=== PATIENT | male | born 1950 | race Caucasian/White ===

== ENCOUNTER 2017-10-20 20:10 | Emergency (ER) | payer MEDICAID ==
[2017-10-20 21:05] VITALS: BP 124/76
--- NOTE | 2017-10-20 21:33 | EDM.PDOC ---
ED HPI GENERAL MEDICAL PROBLEM - General Chief Complaint: Genitourinary Problem Time Seen by Provider: 10/20/17 21:20 Source of Information: Reports: Patient, [facility] Records History Limitations: Reports: No Limitations - History of Present Illness INITIAL COMMENTS - FREE TEXT/NARRATIVE: ED for suprapubic catheter replacement. Catheter replaced earlier today fell out. - Related Data Allergies Allergy/AdvReac Type Severity Reaction Status Date / Time No Known Allergies Allergy Verified 04/15/16 08:22 Home Meds: Home Meds Furosemide 20 mg PO 0800 01/22/15 [History] Lisinop[place] 2[place] 7[address]01/22/15 [History] Oxybutynin [Oxybutynin ER] 10 mg PO 199901/22/15 [History] Pantoprazole [ProTONIX] 40 [place] 69901/22/15 [History] Simvastatin 40 mg PO 199901/22/15 [History] Terazosin HCl [Terazosin] 2 mg PO 199901/22/15 [History] Thioridazine HCl 10 mg PO 199901/22/15 [History] Warfarin Sodium [Jantoven] 2.5 mg PO .MO.WE..FR.SA.REDDING 01/22/15 [History] Acetaminophen [Tylenol] 650 mg PO Q4H PRN 01/24/15 [History] Albuterol Sulfate [Proair Hfa] 2 puff IH Q4HR PRN 01/24/15 [History] Iron,Carbonyl [Feosol] 45 mg PO 179901/24/15 [History] Liraglutide [Victoza] 1.8 mg SUBCUT 1700 01/24/15 [History] OLANZapine [ZyPREXA] 5 mg PO .08199901/24/15 [History] Pioglitazone HCl [Actos] 30 mg PO DAILY 01/24/15 [History] Sennosides [Senna] 1 tab PO 199901/24/15 [History] metFORMIN [Glucophage] 500 mg PO .0800 179901/24/15 [History] Allopurinol [Zyloprim] 100 mg PO 199903/28/16 [History] Darbepoetin [place]orge in Polysorbat [Aranesp] 60 mcg IJ ASDIRECTED 03/28/16 [History] Dextran 70/Hypromellose [Artificial Tears] 1 drop EYEBOTH QID 03/28/16 [History] Triamcinolone Acetonide [Triamcinolone Acetonide 0.1% Crm] 1 applic TOP BID PRN 03/28/16 [History] Levofloxacin 500 mg PO DAILY #10 tablet 04/01/16 [Rx] Nystatin [IJD: Nystatin Cream] 1 gm TOP BID #100 tube 04/01/16 [Rx] Nepafenac [Nevanac] 1 drop EYELF ASDIRECTED 04/15/16 [History] Ofloxacin [Floxin 0.3% Otic Soln] 1 drop EYELF ASDIRECTED 04/15/16 [History] prednisoLONE Acetate [Prednisolone Acetate] 1 drop EYELF ASDIRECTED 04/15/16 [ History] Past Medical History HEENT History: Reports: Cataract Other HEENT History: left eye Cardiovascular History: Reports: High Cholesterol, Hypertension Other Cardiovascular History: 1985 blood clot to leg Respiratory History: Reports: Asthma Other Respiratory History: 1985 clot in leg traveled to lung Gastrointestinal History: Reports: GERD Genitourinary History: Reports: Retention, Urinary, UTI, Recurrent Other Genitourinary History: suprapubic catheter Musculoskeletal History: Reports: None Psychiatric History: Reports: Aggressive/Hostile Behaviors, Depression, Psychosis Endocrine/Metabolic History: Reports: Diabetes, Type II Hematologic History: Reports: Anemia Oncologic (Cancer) History: Reports: None Dermatologic History: Reports: Other (See Below) Other Dermatologic History: excoriated area to abominal fold - Infectious Disease History Infectious Disease History: Reports: Chicken Pox, Measles, Mumps - Past Surgical History GI Surgical History: Reports: Cholecystectomy, Colonoscopy Male Surgical History: Reports: Suprapubic Catheter Placement Other Male Surgeries/Procedures: 2013 suprapubic cath placement Social & Family History - Tobacco Use Smoking Status *Q: Never Smoker Second Hand Smoke Exposure: No - Alcohol Use Days Per Week of Alcohol Use: 0 - Recreational Drug Use Recreational Drug Use: No - Living Situation & Occupation Living situation: Reports: Single, Assisted Living Occupation: Disabled ED ROS GENERAL - Review of Systems Review Of Systems: ROS reveals no pertinent complaints other than HPI. ED EXAM, RENAL/ - Physical Exam Exam: See Below Exam Limited By: No Limitations General Appearance: Alert, No Apparent Distress Eye Exam: Bilateral Eye: PERRL Ears: Normal External Exam Nose: Normal Inspection Throat/Mouth: Normal Inspection, Normal Voice Neck: Normal Inspection Respiratory/Chest: No Respiratory Distress Cardiovascular: Regular Rate, Rhythm GI/Abdominal: Soft, Non-Tender (Male) Exam: Other (Suprapubic os, stoma clean, small tag 9'0clock.) Extremities: Normal Inspection Neurological: Alert, Oriented Psychiatric: Normal Affect ED PROCEDURES - Suprapubic Catheter Insertion S/P Cath Indication: Repolacement Consent Obtained: Reports: Patient Prep: Reports: Betadine Urine Description: Reports: Clear, Blood Clots (few), Cloudy Complications:: No Comments:: 14 fr Course - Vital Signs Last Recorded V/S: Last Vital Signs Temp 98.3 F 10/20/17 21:02 Pulse 91 10/20/17 21:02 Resp 18 10/20/17 21:02 BP 124/76 10/20/17 21:02 Pulse Ox 91 L 10/20/17 21:02 Departure - Departure Time of Disposition: 21:31 Disposition: Home, Self-Care 01 Condition: Good Clinical Impression: Suprapubic catheter dysfunction Qualifiers: Encounter type: initial encounter Qualified Code(s): T83.010A - Breakdown ( mechanical) of cystostomy catheter, initial encounter - Discharge Information Instructions: [facility] Catheter [facility], Adult Referrals: PCP,None [Primary Care Provider] - Forms: ED Department Discharge Additional Instructions: Resume prvious orders and routine cares follow up as needed
== END 2017-10-20 21:47 | disposition home or self-care (01) ==
LOC: DL.ED 20:10
DX: T83.010A Breakdown (mechanical) of cystostomy catheter, initial encounter (principal); I10 Essential (primary) hypertension; E78.00 Pure hypercholesterolemia, unspecified; J45.909 Unspecified asthma, uncomplicated; K21.9 Gastro-esophageal reflux disease without esophagitis; E11.9 Type 2 diabetes mellitus without complications; F32.9 Major depressive disorder, single episode, unspecified; Z79.2 Long term (current) use of antibiotics; Z79.84 Long term (current) use of oral hypoglycemic drugs; Z79.01 Long term (current) use of anticoagulants; Z79.899 Other long term (current) drug therapy
CPT/HCPCS: 51703; 99283

== ENCOUNTER 2017-11-03 18:33 | Emergency (ER) | payer MEDICAID ==
[2017-11-03 19:14] LABS: ANION GAP 12.3
[2017-11-03] MEDS ORDERED: Nitroglycerin 0.4 MG Tab.SL SL ONE (19:40)
[2017-11-03 19:53] VITALS: BP 103/68
[2017-11-03] MEDS ORDERED: Morphine 2 MG/ML Syringe IVPUSH ONE (20:58)
--- NOTE | 2017-11-05 04:48 | EDM.PDOC ---
ED HPI GENERAL MEDICAL PROBLEM - General Chief Complaint: Chest Pain Time Seen by Provider: 11/03/17 19:15 Source of Information: Reports: Patient History Limitations: Reports: Other (lower cognitive function) - History of Present Illness INITIAL COMMENTS - FREE TEXT/NARRATIVE: ED via EMS from [facility] with c/o of chest pain. Onset approximately one hour ago. Reports started while sitting,, first came and went then constant, described as sharp "like a rope being tightened. No nausea or sweating. Pain better now than was rating still 9/10. Location: Reports: Chest Middle Epigastric Pain Score (Numeric/FACES): 5 Chest Pain Score (Numeric/FACES): 8 - Related Data Allergies Allergy/AdvReac Type Severity Reaction Status Date / Time No Known Allergies Allergy Verified 11/03/17 18:54 Home Meds: Home Meds Furosemide 20 mg PO 0800 01/22/15 [History] Lisinopril 2.5 mg PO 0800 01/22/15 [History] Oxybutynin [Oxybutynin ER] 10 mg PO 199901/22/15 [History] Pantoprazole [ProTONIX] 40 mg PO 0700 01/22/15 [History] Simvastatin 40 mg PO 199901/22/15 [History] Terazosin HCl [Terazosin] 2 mg PO 199901/22/15 [History] Thioridazine HCl 10 mg PO 199901/22/15 [History] Warfarin Sodium [Jantoven] 2.5 mg PO .MO.WE..FR.SA.REDDING 01/22/15 [History] Acetaminophen [Tylenol] 650 mg PO Q4H PRN 01/24/15 [History] Albuterol Sulfate [Proair Hfa] 2 puff IH Q4HR PRN 01/24/15 [History] Iron,Carbonyl [Feosol] 45 mg PO 1800 01/24/15 [History] Liraglutide [Victoza] 1.8 mg SUBCUT 1700 01/24/15 [History] OLANZapine [ZyPREXA] 5 mg PO .0800 199901/24/15 [History] Pioglitazone HCl [Actos] 30 mg PO DAILY 01/24/15 [History] Sennosides [Senna] 1 tab PO 199901/24/15 [History] metFORMIN [Glucophage] 500 mg PO .0800 1800 01/24/15 [History] Allopurinol [Zyloprim] 100 mg PO 199903/28/16 [History] Darbepoetin [place] in Polysorbat [Aranesp] 60 mcg IJ ASDIRECTED 03/28/16 [History] Dextran 70/Hypromellose [Artificial Tears] 1 drop EYEBOTH QID 03/28/16 [History] Triamcinolone Acetonide [Triamcinolone Acetonide 0.1% Crm] 1 applic TOP BID PRN 03/28/16 [History] Levofloxacin 500 mg PO DAILY #10 tablet 04/01/16 [Rx] Nystatin [IJD: Nystatin Cream] 1 gm TOP BID #100 tube 04/01/16 [Rx] Nepafenac [Nevanac] 1 drop EYELF ASDIRECTED 04/15/16 [History] Ofloxacin [Floxin 0.3% Otic Soln] 1 drop EYELF ASDIRECTED 04/15/16 [History] prednisoLONE Acetate [Prednisolone Acetate] 1 drop EYELF ASDIRECTED 04/15/16 [ History] Past Medical History HEENT History: Reports: Cataract Other HEENT History: left eye Cardiovascular History: Reports: High Cholesterol, Hypertension Other Cardiovascular History: 1985 blood clot to leg Respiratory History: Reports: Asthma Other Respiratory History: 1985 clot in leg traveled to lung Gastrointestinal History: Reports: GERD Genitourinary History: Reports: Retention, Urinary, UTI, Recurrent Other Genitourinary History: suprapubic catheter Musculoskeletal History: Reports: None Neurological History: Reports: Seizure Psychiatric History: Reports: Aggressive/Hostile Behaviors, Depression, Psychosis Endocrine/Metabolic History: Reports: Diabetes, Type II Hematologic History: Reports: Anemia Oncologic (Cancer) History: Reports: None Dermatologic History: Reports: Other (See Below) Other Dermatologic History: excoriated area to abominal fold - Infectious Disease History Infectious Disease History: Reports: Chicken Pox, Measles, Mumps - Past Surgical History GI Surgical History: Reports: Cholecystectomy, Colonoscopy Male Surgical History: Reports: Suprapubic Catheter Placement Other Male Surgeries/Procedures: 2013 suprapubic cath placement Social & Family History - Tobacco Use Smoking Status *Q: Never Smoker Second Hand Smoke Exposure: No - Caffeine Use Caffeine Use: Reports: Coffee, Soda - Alcohol Use Days Per Week of Alcohol Use: 0 - Recreational Drug Use Recreational Drug Use: No - Living Situation & Occupation Living situation: Reports: Single, Assisted Living Occupation: Disabled ED ROS GENERAL - Review of Systems Review Of Systems: See Below Constitutional: Denies: Fever, Chills HEENT: Reports: No Symptoms Respiratory: Denies: Shortness of Breath, Cough Cardiovascular: Reports: Chest Pain, Edema (chronic right hx DVT and PE). Denies: Lightheadedness Endocrine: Reports: No Symptoms GI/Abdominal: Reports: No Symptoms : Reports: Urinary Retention ( Supra pubic cath) Musculoskeletal: Denies: Neck Pain, Shoulder Pain, Back Pain Skin: Reports: No Symptoms Psychiatric: Reports: Other (schizoaffective disorder) ED EXAM, GENERAL - Physical Exam Exam: See Below Exam Limited By: No Limitations General Appearance: Alert, No Apparent Distress Eye Exam: Bilateral Eye: EOMI Ears: Normal External Exam Nose: Normal Inspection Throat/Mouth: Other (poor dentation) Neck: Normal Inspection, Full Range of Motion Respiratory/Chest: No Respiratory Distress, Lungs Clear, Normal Breath Sounds, Other (anterior /lateral left chest wall tenderness with light palpation, pain increases with movment). No: Respiratory Distress, Decreased Breath Sounds, Crackles, Rales, Rhonchi, Wheezing Cardiovascular: Normal Peripheral Pulses, Regular Rate, Rhythm, No JVD, No Murmur GI/Abdominal: Normal Bowel Sounds, Soft (Male) Exam: Other (supra pubic cath) Back Exam: No: CVA Tenderness (L), CVA Tenderness (R) Extremities: Pedal Edema (right 2+). No: Arm Pain Neurological: Alert, Oriented. No: Normal Cognition (lower function) Psychiatric: Normal Affect Skin Exam: Warm, Dry, Intact EKG INTERPRETATION Rhythm: NSR QRS: LBBB Comparison: Change From Previous EKG (new BBB) Course - Vital Signs Last Recorded V/S: Last Vital Signs Temp 97.6 F 11/03/17 19:51 Pulse 111 H 11/03/17 19:54 Resp 21 H 11/03/17 19:54 BP 103/68 11/03/17 19:51 Pulse Ox 92 L 11/03/17 19:54 - Orders/Labs/Meds Labs: Laboratory Tests 11/03/17 11/03/17 11/03/17 Range/Units 18:49 18:49 18:49 WBC 5.7 (5.0-10.0) 10^3/uL RBC 4.29 L (4.6-6.2) 10^6/uL Hgb 13.7 L D (14.0-18.0) g/dL Hct 40.8 (40.0-54.0) % MCV 95.1 (80-100) fL MCH 31.9 (27.0-34.0) pg MCHC 33.6 (33.0-35.0) g/dL Plt Count 203 (150-450) 10^3/uL Neut % (Auto) 47.7 (42.2-75.2) % Lymph % (Auto) 33.6 (20.5-50.1) % [place] % (Auto) 11.0 H (2-8) % Eos % (Auto) 7.0 H (1.0-3.0) % Baso % (Auto) 0.7 (0.0-1.0) % PT (9.0-12.0) SEC INR (0.9-1.2) D-Dimer, Quantitative < 100 (0-400) ng/mL Sodium 137 (135-145) mmol/L Potassium 3.3 L (3.6-5.0) mmol/L Chloride 104 (101-111) mmol/L Carbon Dioxide 24.0 (21.0-31.0) mmol/L Anion Gap 12.3 BUN 19 H (7-18) mg/dL Creatinine 1.3 (0.6-1.3) mg/dL Est Cr Clr Drug Dosing 63.01 mL/min Estimated GFR (MDRD) 56 BUN/Creatinine Ratio 14.61 Glucose 222 H (74-105) mg/dL Calcium 8.9 (8.4-10.2) mg/dl Total Bilirubin 0.6 (0.2-1.0) mg/dL AST 39 (10-42) IU/L ALT 21 (10-60) IU/L Alkaline Phosphatase 69 (42-121) IU/L CK-MB (CK-2) (0.4-4.7) ng/mL Troponin I 0.03 H* (0.00-0.02) ng/ml B-Natriuretic Peptide (0-100) pg/ml Total Protein 7.2 (6.7-8.2) g/dl Albumin 4.0 (3.2-5.5) g/dl Globulin 3.2 Albumin/Globulin Ratio 1.25 11/03/17 11/03/17 11/03/17 Range/Units 18:49 18:49 18:49 WBC (5.0-10.0) 10^3/uL RBC (4.6-6.2) 10^6/uL Hgb (14.0-18.0) g/dL Hct (40.0-54.0) % MCV (80-100) fL MCH (27.0-34.0) pg MCHC (33.0-35.0) g/dL Plt Count (150-450) 10^3/uL Neut % (Auto) (42.2-75.2) % Lymph % (Auto) (20.5-50.1) % [place] % (Auto) (2-8) % Eos % (Auto) (1.0-3.0) % Baso % (Auto) (0.0-1.0) % PT 25.5 H (9.0-12.0) SEC INR 2.5 H (0.9-1.2) D-Dimer, Quantitative (0-400) ng/mL Sodium (135-145) mmol/L Potassium (3.6-5.0) mmol/L Chloride (101-111) mmol/L Carbon Dioxide (21.0-31.0) mmol/L Anion Gap BUN (7-18) mg/dL Creatinine (0.6-1.3) mg/dL Est Cr Clr Drug Dosing mL/min Estimated GFR (MDRD) BUN/Creatinine Ratio Glucose (74-105) mg/dL Calcium (8.4-10.2) mg/dl Total Bilirubin (0.2-1.0) mg/dL AST (10-42) IU/L ALT (10-60) IU/L Alkaline Phosphatase (42-121) IU/L CK-MB (CK-2) 1.00 (0.4-4.7) ng/mL Troponin I (0.00-0.02) ng/ml B-Natriuretic Peptide 11 (0-100) pg/ml Total Protein (6.7-8.2) g/dl Albumin (3.2-5.5) g/dl Globulin Albumin/Globulin Ratio 11/03/17 Range/Units 21:10 WBC (5.0-10.0) 10^3/uL RBC (4.6-6.2) 10^6/uL Hgb (14.0-18.0) g/dL Hct (40.0-54.0) % MCV (80-100) fL MCH (27.0-34.0) pg MCHC (33.0-35.0) g/dL Plt Count (150-450) 10^3/uL Neut % (Auto) (42.2-75.2) % Lymph % (Auto) (20.5-50.1) % [place] % (Auto) (2-8) % Eos % (Auto) (1.0-3.0) % Baso % (Auto) (0.0-1.0) % PT (9.0-12.0) SEC INR (0.9-1.2) D-Dimer, Quantitative (0-400) ng/mL Sodium (135-145) mmol/L Potassium (3.6-5.0) mmol/L Chloride (101-111) mmol/L Carbon Dioxide (21.0-31.0) mmol/L Anion Gap BUN (7-18) mg/dL Creatinine (0.6-1.3) mg/dL Est Cr Clr Drug Dosing mL/min Estimated GFR (MDRD) BUN/Creatinine Ratio Glucose (74-105) mg/dL Calcium (8.4-10.2) mg/dl Total Bilirubin (0.2-1.0) mg/dL AST (10-42) IU/L ALT (10-60) IU/L Alkaline Phosphatase (42-121) IU/L CK-MB (CK-2) (0.4-4.7) ng/mL Troponin I 0.08 H* (0.00-0.02) ng/ml B-Natriuretic Peptide (0-100) pg/ml Total Protein (6.7-8.2) g/dl Albumin (3.2-5.5) g/dl Globulin Albumin/Globulin Ratio Meds: Medications Discontinued Medications Generic Name Dose Route Start Last Admin Trade Name Freq PRN Reason Stop Dose Admin Morphine Sulfate 2 mg 11/03/17 20:58 11/03/17 21:03 Morphine IVPUSH 11/03/17 20:59 2 mg ONETIME ONE Administration Nitroglycerin 0.4 mg 11/03/17 19:40 11/03/17 19:49 Nitrostat SL 11/03/17 19:41 0.4 mg ONETIME ONE Administration - Radiology Interpretation Free Text/Narrative:: CXR mild cardiac enlargement, mild bilateral patchy atelectasis - Re-Assessments/Exams Free Text/Narrative Re-Assessment/Exam: Nitro x1 with relief of chest pain unless movment or palpation of area. Tx Dr Gabi Deng accepting of patient. Tx via [facility]. Departure - Departure Time of Disposition: 21:25 Disposition: DC/Tfer to Acute Hospital 02 Reason for Transfer *Q: Primary PCI Indicated Condition: Undetermined Clinical Impression: Suprapubic catheter, Non-ST elevated myocardial infarction Schizoaffective disorder Qualifiers: Schizoaffective disorder type: unspecified Qualified Code(s): F25.9 - Schizoaffective disorder, unspecified Diabetes Qualifiers: Diabetes mellitus type: type 2 Diabetes mellitus complication status: with unspecified complications Diabetes mellitus fdc insulin use: unspecified termite exterminator helper insulin use status Qualified Code(s): E11.8 - Type 2 diabetes mellitus with unspecified complications Forms: ED Department Discharge
--- NOTE | 2017-11-05 09:06 | EKG ---
11/03/2017- NELSON NGUYEN - FINDINGS: EKG shows sinus tachycardia. There is left bundle-branch block. [facility] /[id number]
== END 2017-11-03 21:25 ==
LOC: DL.ED 18:33
DX: I21.4 Non-ST elevation (NSTEMI) myocardial infarction (principal); F25.9 Schizoaffective disorder, unspecified; E11.9 Type 2 diabetes mellitus without complications; E78.00 Pure hypercholesterolemia, unspecified; I10 Essential (primary) hypertension; Z79.899 Other long term (current) drug therapy
CPT/HCPCS: 36415; 71045; 80053; 82553; 83880; 84484; 85025; 85379; 85610; 93005; 96374; 99285; A9270; J2270

== ENCOUNTER 2021-09-02 10:04 | Emergency (ER) | payer MEDICARE, MEDICAID ==
[2021-09-02 10:37] VITALS: BP 149/88; PULSE 82
--- NOTE | 2021-09-02 11:48 | EDM.PDOC ---
ED HPI GENERAL MEDICAL PROBLEM - General Chief Complaint: Abdominal Pain Stated Complaint: [id number] SHARP PAINS IN STOMACH Time Seen by Provider: 09/02/21 11:35 Source of Information: Reports: Patient History Limitations: Reports: No Limitations - History of Present Illness INITIAL COMMENTS - FREE TEXT/NARRATIVE: This 70 yo male patient reports to the ED with lower abdominal pain. The patient reports his "sharp" pains started this morning. The patient does have an appointment at the Clinic this afternoon, but came here due to the pains. The patient does have a suprapubic catheter in place and has had his catheter plug in the past. The patient also reports he has previously been on antibiotics for a bladder infection. The patient reports he had a normal bowel movement yes terday. The patient denies any chest pain or shortness of breath. Onset: Today Duration: Constant Location: Reports: Abdomen (lower abdomen (pain getting worse)) Quality: Reports: Ache, Sharp, Stabbing Severity: Moderate Improves with: Reports: None Worsens with: Reports: None Context: Reports: Other Associated Symptoms: Reports: No Other Symptoms Bilateral Lower Abdominal Pain Score (Numeric/FACES): 8 - Related Data Allergies Allergy/AdvReac Type Severity Reaction Status Date / Time No Known Allergies Allergy Verified 09/02/21 10:37 Home Meds: Home Meds Acetaminophen [Tylenol] 325 mg PO ASDIRECTED 09/02/21 [History] Albuterol Sulfate [Proair Hfa] 8.5 gm IH ASDIRECTED 09/02/21 [History] Bumetanide [Bumex] 0.5 mg PO ASDIRECTED 09/02/21 [History] Cholecalciferol (Vitamin D3) [Vitamin D3] 2,000 mg PO ASDIRECTED 09/02/21 [History] Dapagliflozin Propanediol [Farxiga] 10 mg PO ASDIRECTED 09/02/21 [History] Desoximetasone [Topicort 0.05% Gel] 0 gm TOP ASDIRECTED 09/02/21 [History] Ferrous Sulfate 325 mg PO ASDIRECTED 09/02/21 [History] Liraglutide [Victoza 2-Scott] 1.8 mg SQ ASDIRECTED 09/02/21 [History] Losartan [Cozaar] 25 mg PO DAILY 09/02/21 [History] Magnesium 400 mg PO ASDIRECTED 09/02/21 [History] Mirtazapine [Remeron] 15 mg PO ASDIRECTED 09/02/21 [History] Nystatin [Nystatin Crm] 15 gm TP ASDIRECTED 09/02/21 [History] OLANZapine [ZyPREXA] 10 mg PO ASDIRECTED 09/02/21 [History] OLANZapine [Zyprexa] 2.5 mg PO ASDIRECTED 09/02/21 [History] Omeprazole 40 mg PO ASDIRECTED 09/02/21 [History] Oxybutynin Chloride [Oxybutynin Chloride ER] 10 mg PO ASDIRECTED 09/02/21 [History] Pioglitazone HCl [Actos] 45 mg PO ASDIRECTED 09/02/21 [History] Potassium Chloride 10 meq PO ASDIRECTED 09/02/21 [History] Sennosides [Senna] 8.6 mg PO ASDIRECTED 09/02/21 [History] Simvastatin [Zocor] 40 mg PO BEDTIME 09/02/21 [History] Triamcinolone Acetonide 1 mg TOP ASDIRECTED 09/02/21 [History] Warfarin [Coumadin] 1.5 mg PO ASDIRECTED 09/02/21 [History] Warfarin [Coumadin] 3 mg PO ASDIRECTED 09/02/21 [History] allopurinoL [Zyloprim] 150 mg PO ASDIRECTED 09/02/21 [History] metFORMIN [Glucophage] 500 mg PO BIDMEALS 09/02/21 [History] Past Medical History HEENT History: Reports: Cataract Other HEENT History: left eye Cardiovascular History: Reports: High Cholesterol, Hypertension, [place] Other Cardiovascular History: 1985 blood clot to leg Respiratory History: Reports: Asthma Other Respiratory History: 1985 clot in leg traveled to lung Gastrointestinal History: Reports: GERD Genitourinary History: Reports: Retention, Urinary, UTI, Recurrent Other Genitourinary History: suprapubic catheter Musculoskeletal History: Reports: None Neurological History: Reports: Seizure Psychiatric History: Reports: Aggressive/Hostile Behaviors, Depression, Psy chosis Endocrine/Metabolic History: Reports: Diabetes, Type II Hematologic History: Reports: Anemia Immunologic History: Reports: None Oncologic (Cancer) History: Reports: None Dermatologic History: Reports: Other (See Below) Other Dermatologic History: excoriated area to abominal fold - Infectious Disease History Infectious Disease History: Reports: Chicken Pox, Measles, Mumps - Past Surgical History Cardiovascular Surgical History: Reports: None Respiratory Surgical History: Reports: None GI Surgical History: Reports: Cholecystectomy, Colonoscopy Male Surgical History: Reports: Suprapubic Catheter Placement Other Male Surgeries/Procedures: 2013 suprapubic cath placement Dermatological Surgical History: Reports: None Social & Family History - Family History Family Medical History: No Pertinent Family History - Tobacco Use Tobacco Use Status *Q: Never Tobacco User Second Hand Smoke Exposure: No - Caffeine Use Caffeine Use: Reports: Soda - Recreational Drug Use Recreational Drug Use: No - Living Situation & Occupation Living situation: Reports: Single, Assisted Living Occupation: Disabled ED ROS GENERAL - Review of Systems Review Of Systems: Comprehensive ROS is negative, except as noted in HPI. ED EXAM, GI/ABD - Physical Exam Exam: See Below Exam Limited By: No Limitations General Appearance: Alert, WD/WN, No Apparent Distress Eyes: Bilateral: Normal Appearance, EOMI Ears: Normal External Exam, Normal Canal, Hearing Grossly Normal, Normal TMs Nose: Normal Inspection, Normal Mucosa, No Blood Throat/Mouth: Normal Inspection, Normal Lips, Normal Teeth, Normal Gums, Normal Oropharynx, Normal Voice, No Airway Compromise Head: Atraumatic, Normocephalic Neck: Normal Inspection, Supple, Non-Tender, Full Range of Motion Respiratory/Chest: No Respiratory Distress, Lungs Clear, Normal Breath Sounds, No Accessory Muscle Use, Chest Non-Tender Cardiovascular: Normal Peripheral Pulses, Regular Rate, Rhythm, No Edema, No Gallop, No JVD, No Murmur, No Rub GI/Abdominal Exam: Tender (lower abdomen) (Male) Exam: Deferred Rectal (Males) Exam: Deferred Back Exam: Normal Inspection, Full Range of Motion, NT Extremities: Normal Inspection, Normal Range of Motion, Non-Tender, Normal Capillary Refill, No Pedal Edema Neurological: Alert, Oriented, CN II-XII Intact, Normal Cognition, Normal Gait, Normal Reflexes, No Motor/Sensory Deficits Psychiatric: Normal Affect, Normal Mood Skin Exam: Warm, Dry, Intact, Normal Color, No Rash Lymphatic: No Adenopathy #1 Interpretation EKG Date: 09/02/21 Time: 10:30 Rhythm: NSR Rate (Beats/Min): 85 [place]: Normal QRS: LBBB ST-T: Normal QT: Normal Comparison: No Change Course - Vital Signs Last Recorded V/S: Last Vital Signs Temp 97.1 F 09/02/21 10:32 Pulse 82 09/02/21 10:32 Resp 18 09/02/21 10:32 BP 149/88 H 09/02/21 10:32 Pulse Ox 95 09/02/21 10:32 - Orders/Labs/Meds Orders: Active Orders 24 hr Category Date Time Status CULTURE BLOOD [BC] Stat Lab 09/02/21 10:57 Received CULTURE URINE [RM] Urgent Lab 09/02/21 12:38 Received REFLEX LACTIC ACID YES OR NO [CHEM] Routine Lab 09/02/21 11:40 Received Labs: Laboratory Tests 09/02/21 09/02/21 09/02/21 Range/Units 10:57 10:57 10:57 WBC 10.1 H (5.0-10.0) 10^3/uL RBC 4.32 L (4.6-6.2) 10^6/uL Hgb 13.6 L (14.0-18.0) g/dL Hct 42.3 (40.0-54.0) % MCV 97.9 D (80-100) fL MCH 31.5 (27.0-34.0) pg MCHC 32.2 L (33.0-35.0) g/dL Plt Count 206 (150-450) 10^3/uL Neut % (Auto) 84.2 H (42.2-75.2) % Lymph % (Auto) 9.9 L (20.5-50.1) % Craig % (Auto) 4.6 (2-8) % Eos % (Auto) 1.2 (1.0-3.0) % Baso % (Auto) 0.1 (0.0-1.0) % Sodium 139 (136-145) mmol/L Potassium 4.0 (3.5-5.1) mmol/L Chloride 101 (98-107) mmol/L Carbon Dioxide 27 (21-32) mmol/L Anion Gap 15.0 H (7-13) mEq/L BUN 31 H (7-18) mg/dL Creatinine 1.70 H (0.70-1.30) mg/dL Est Cr Clr Drug Dosing 45.65 mL/min Estimated GFR (MDRD) 40 BUN/Creatinine Ratio 18.2 (No establ ref range) Glucose 275 H (70-99) mg/dL Lactic Acid (0.4-2.0) mmol/L Calcium 9.3 (8.5-10.1) mg/dL Total Bilirubin 0.3 (0.2-1.0) mg/dL AST 17 (15-37) U/L ALT 17 (16-63) U/L Alkaline Phosphatase 98 (46-116) U/L Ammonia < 10 L (11-32) umol/L Troponin I High Sens (<=76) pg/mL Total Protein 7.8 (6.4-8.2) g/dL Albumin 3.5 (3.4-5.0) g/dL Globulin 4.3 Albumin/Globulin Ratio 0.8 Amylase 41 (25-115) U/L Lipase 81 (73-393) U/L Urine Color (YELLOW) Urine Appearance (CLEAR) Urine pH (5.0-9.0) Ur Specific [place] (1.005-1.030) Urine Protein (NEGATIVE) Urine Glucose (UA) (NEGATIVE) Urine Ketones (NEGATIVE) Urine Occult Blood (NEGATIVE) Urine Nitrite (NEGATIVE) Urine Bilirubin (NEGATIVE) Urine Urobilinogen (0.2-1.0) mg/dL Ur Leukocyte Esterase (NEGATIVE) Urine RBC (0-5) /HPF Urine WBC (0-5/HPF) /HPF Urine Bacteria (0-FEW/HPF) /HPF Acetaminophen 0 L (10-30 (Therapeutic)) ug/mL 09/02/21 09/02/21 09/02/21 Range/Units 10:57 10:57 12:10 WBC (5.0-10.0) 10^3/uL RBC (4.6-6.2) 10^6/uL Hgb (14.0-18.0) g/dL Hct (40.0-54.0) % MCV (80-100) fL MCH (27.0-34.0) pg MCHC (33.0-35.0) g/dL Plt Count (150-450) 10^3/uL Neut % (Auto) (42.2-75.2) % Lymph % (Auto) (20.5-50.1) % Craig % (Auto) (2-8) % Eos % (Auto) (1.0-3.0) % Baso % (Auto) (0.0-1.0) % Sodium (136-145) mmol/L Potassium (3.5-5.1) mmol/L Chloride (98-107) mmol/L Carbon Dioxide (21-32) mmol/L Anion Gap (7-13) mEq/L BUN (7-18) mg/dL Creatinine (0.70-1.30) mg/dL Est Cr Clr Drug Dosing mL/min Estimated GFR (MDRD) BUN/Creatinine Ratio (No establ ref range) Glucose (70-99) mg/dL Lactic Acid 2.5 H* (0.4-2.0) mmol/L Calcium (8.5-10.1) mg/dL Total Bilirubin (0.2-1.0) mg/dL AST (15-37) U/L ALT (16-63) U/L Alkaline Phosphatase (46-116) U/L Ammonia (11-32) umol/L Troponin I High Sens 265 H* 260 H* (<=76) pg/mL Total Protein (6.4-8.2) g/dL Albumin (3.4-5.0) g/dL Globulin Albumin/Globulin Ratio Amylase (25-115) U/L Lipase (73-393) U/L Urine Color (YELLOW) Urine Appearance (CLEAR) Urine pH (5.0-9.0) Ur Specific [place] (1.005-1.030) Urine Protein (NEGATIVE) Urine Glucose (UA) (NEGATIVE) Urine Ketones (NEGATIVE) Urine Occult Blood (NEGATIVE) Urine Nitrite (NEGATIVE) Urine Bilirubin (NEGATIVE) Urine Urobilinogen (0.2-1.0) mg/dL Ur Leukocyte Esterase (NEGATIVE) Urine RBC (0-5) /HPF Urine WBC (0-5/HPF) /HPF Urine Bacteria (0-FEW/HPF) /HPF Acetaminophen (10-30 (Therapeutic)) ug/mL 09/02/ Range/Units 12:38 WBC (5.0-10.0) 10^3/uL RBC (4.6-6.2) 10^6/uL Hgb (14.0-18.0) g/dL Hct (40.0-54.0) % MCV (80-100) fL MCH (27.0-34.0) pg MCHC (33.0-35.0) g/dL Plt Count (150-450) 10^3/uL Neut % (Auto) (42.2-75.2) % Lymph % (Auto) (20.5-50.1) % Craig % (Auto) (2-8) % Eos % (Auto) (1.0-3.0) % Baso % (Auto) (0.0-1.0) % Sodium (136-145) mmol/L Potassium (3.5-5.1) mmol/L Chloride (98-107) mmol/L Carbon Dioxide (21-32) mmol/L Anion Gap (7-13) mEq/L BUN (7-18) mg/dL Creatinine (0.70-1.30) mg/dL Est Cr Clr Drug Dosing mL/min Estimated GFR (MDRD) BUN/Creatinine Ratio (No establ ref range) Glucose (70-99) mg/dL Lactic Acid (0.4-2.0) mmol/L Calcium (8.5-10.1) mg/dL Total Bilirubin (0.2-1.0) mg/dL AST (15-37) U/L ALT (16-63) U/L Alkaline Phosphatase (46-116) U/L Ammonia (11-32) umol/L Troponin I High Sens (<=76) pg/mL Total Protein (6.4-8.2) g/dL Albumin (3.4-5.0) g/dL Globulin Albumin/Globulin Ratio Amylase (25-115) U/L Lipase (73-393) U/L Urine Color Yellow (YELLOW) Urine Appearance Cloudy (CLEAR) Urine pH 7.5 (5.0-9.0) Ur Specific [place] 1.020 (1.005-1.030) Urine Protein 30 H (NEGATIVE) Urine Glucose (UA) >=1000 H (NEGATIVE) Urine Ketones Negative (NEGATIVE) Urine Occult Blood Moderate H (NEGATIVE) Urine Nitrite Positive H (NEGATIVE) Urine Bilirubin Negative (NEGATIVE) Urine Urobilinogen 0.2 (0.2-1.0) mg/dL Ur Leukocyte Esterase Large H (NEGATIVE) Urine RBC 50-75 H (0-5) /HPF Urine WBC >100 H (0-5/HPF) /HPF Urine Bacteria Many H (0-FEW/HPF) /HPF Acetaminophen (10-30 (Therapeutic)) ug/mL Meds: Medications Discontinued Medications Generic Name Dose Route Start Last Admin Trade Name Janie PRN Reason Stop Dose Admin Cephalexin 500 mg 09/02/21 12:56 Cephalexin 500 Mg Cap PO 09/02/21 12:57 ONETIME ONE - Re-Assessments/Exams Free Text/Narrative Re-Assessment/Exam: 09/02/21 13:00 The patient had a bowel movement resulting in reduction of his abdominal pain. Departure - Departure Time of Disposition: 13:00 Disposition: Home, Self-Care 01 Condition: Fair Clinical Impression: UTI (urinary tract infection) Qualifiers: Urinary tract infection type: catheter-associated UTI Indwelling urinary catheter type: indwelling urethral catheter Encounter type: initial encounter Qualified Code(s): T83.511A - Infection and inflammatory reaction due to indwelling urethral catheter, initial encounter; N39.0 - Urinary tract infection, site not specified - Discharge Information *PRESCRIPTION DRUG MONITORING PROGRAM REVIEWED*: Not Applicable *COPY OF PRESCRIPTION DRUG MONITORING REPORT IN PATIENT AZUL: Not Applicable Instructions: Urinary Tract Infection, Adult, [id number] Forms: ED Department Discharge Care Plan Goals: The patient was advised of the examination and lab results during the visit. The patient was given an oral dose of Keflex (500 mg) while in the ED. The patient was discharged with a script for Keflex (500 mg) #21 to take 1 by mouth 3 times per day for 7 days. The patient was encouraged to follow-up with his primary care facility next week for continued evaluation and management. If the patient has any additional symptoms or concerns, the patient should either return to the emergency department or visit his primary care facility. Sepsis Event Note (ED) - Evaluation Sepsis Screening Result: No Definite Risk - Focused Exam Vital Signs: Vital Signs Temp Pulse Resp BP Pulse Ox 09/02/21 10:32 97.1 F 82 18 149/88 H 95 - My Orders Last 24 Hours: My Active Orders 09/02/21 10:57 CULTURE BLOOD [BC] Stat 09/02/21 11:40 REFLEX LACTIC ACID YES OR NO [CHEM] Routine 09/02/21 12:38 CULTURE URINE [RM] Urgent - Assessment/Plan Last 24 Hours: My Active Orders 09/02/21 10:57 CULTURE BLOOD [BC] Stat 09/02/21 11:40 REFLEX LACTIC ACID YES OR NO [CHEM] Routine 09/02/21 12:38 CULTURE URINE [RM] Urgent
[2021-09-02] MEDS ORDERED: Cephalexin 500 MG Cap PO ONE (12:56)
--- NOTE | 2021-09-05 09:12 | PCM.SN.2 ---
- Free Text/Narrative Note: 09/05/21 0932 Postmaster attempted to reach patient via telephone numbers provided in chart. No messages left as voicemail box not set-up. Will continue to try to reach patient regarding blood culture findings, throughout the day.
== END 2021-09-02 13:14 | disposition home or self-care (01) ==
LOC: DL.ED 10:04
DX: T83.511A Infection and inflammatory reaction due to indwelling urethral catheter, initial encounter (principal); N39.0 Urinary tract infection, site not specified; E78.00 Pure hypercholesterolemia, unspecified; I10 Essential (primary) hypertension; I25.2 Old myocardial infarction; J45.909 Unspecified asthma, uncomplicated; E11.9 Type 2 diabetes mellitus without complications; D64.9 Anemia, unspecified; I44.7 Left bundle-branch block, unspecified; Z79.84 Long term (current) use of oral hypoglycemic drugs; Z79.899 Other long term (current) drug therapy
CPT/HCPCS: 36415; 80053; 80143; 81001; 82140; 82150; 83605; 83690; 84484; 85025; 87040; 87077; 87186; 93005; 99284; A9270; 87086

== ENCOUNTER 2021-10-21 15:45 | Emergency (ER) | payer MEDICARE, MEDICAID | END 2021-10-21 18:12 | disposition left against medical advice (07) | LOC: DL.ED 15:45 | DX: Z53.21 Procedure and treatment not carried out due to patient leaving prior to being seen by health care provider (principal) ==

== ENCOUNTER 2022-01-01 13:57 | Inpatient (IN) | payer MEDICARE, MEDICAID ==
[2022-01-01] MEDS ORDERED: Sodium Chloride 0.9% 10 ML Syringe FLUSH PRN (14:29)
[2022-01-01 15:17] LABS: ANION GAP 20.4 mEq/L (7-13)
[2022-01-01] MEDS ORDERED: Sodium Chloride 0.9% 1,000 ML IV ONE (15:22)
[2022-01-01] MEDS ORDERED: cefTRIAXone 2 GM in Sodium Chloride 0.9% 100 ML IV ONE (15:30)
[2022-01-01] MEDS ORDERED: Glucagon,Human Recombinant 1 MG Vial IM PRN ×3 (15:33→22:31)
[2022-01-01] MEDS ORDERED: Insulin Regular, Human 100 Units/ML 3 ML Vial IV ONE (15:33)
[2022-01-01] MEDS ORDERED: 50% Dextrose in Water 50 ML Syringe IVPUSH PRN ×3 (15:33→22:31)
[2022-01-01 16:06] LABS: O2 DELIVERY DEVICE NASAL CANNULA
[2022-01-01 16:11] LABS: BICARBONATE,ARTERIAL 23.3 mmol/L (22-26); O2 SATURATION ARTERIAL 89 % (95-100); PCO2 ARTERIAL 36 mmHg (35-45); PO2 ARTERIAL 59 mmHg (70-100)
[2022-01-01 16:12] LABS: BASE EXCESS ARTERIAL 0 mmol/L ((-2)-(+3))
[2022-01-01] MEDS ORDERED: Zolpidem 5 MG Tab PO PRN (18:47)
[2022-01-01] MEDS ORDERED: HYDROmorphone 0.5 MG/0.5 ML Syringe IVPUSH PRN (18:47)
[2022-01-01] MEDS ORDERED: Acetaminophen 325 MG Tab PO PRN (18:47)
[2022-01-01] MEDS ORDERED: Albuterol/Ipratropium 3.0-0.5 MG/3 ML Neb Soln NEB PRN (18:47)
[2022-01-01] MEDS ORDERED: Ondansetron 4 MG/2 ML SDV IVPUSH PRN (18:47)
[2022-01-01] MEDS ORDERED: Polyethylene Glycol 3350 Powder 17 GM Packet PO PRN (18:47)
[2022-01-01] MEDS ORDERED: Piperacillin/Tazobactam 3.375 GM in Sodium Chloride 0.9% 100 ML IV SCH (19:15)
[2022-01-01] MEDS ORDERED: Non-Formulary Medication 1 Each (Sennosides [Senna] 8.6 MG Capsule) PO SCH (20:30)
[2022-01-01] MEDS ORDERED: Triamcinolone Acetonide 0.1% Crm 15 GM Tube TOP SCH (20:30)
[2022-01-01] MEDS ORDERED: OLANZAPINE 10 MG PO SCH (20:30)
[2022-01-01] MEDS ORDERED: Non-Formulary Medication 1 Each (Oxybutynin Chloride [Oxybutynin Chloride Er] 10 MG Tab.Er PO SCH (20:30)
[2022-01-01] MEDS ORDERED: Ferrous Sulfate 325 MG Tab PO SCH (20:30)
[2022-01-01] MEDS ORDERED: Albuterol 6.7 GM Inhaler INH SCH (20:30)
[2022-01-01] MEDS ORDERED: Allopurinol 100 MG Tab PO SCH (20:30)
[2022-01-01] MEDS ORDERED: PIOGLITAZONE HCL 45 MG PO SCH (20:30)
[2022-01-01] MEDS ORDERED: Mirtazapine 15 MG Tab PO SCH (20:30)
[2022-01-01] MEDS ORDERED: Acetaminophen 325 MG Tab PO SCH (20:30)
[2022-01-01] MEDS ORDERED: Non-Formulary Medication 1 Each (Cholecalciferol (Vitamin D3) [Vitamin D3] 2,000 UNIT Caps PO SCH (20:30)
[2022-01-01] MEDS ORDERED: OLANZAPINE 2.5 MG PO SCH (20:30)
[2022-01-01] MEDS ORDERED: Non-Formulary Medication 1 Each (Magnesium [Magnesium] 200 MG Tablet) PO SCH (20:30)
[2022-01-01] MEDS: Sodium Chloride 0.9% 1,000 ML IV SCH (22:29)
[2022-01-01] MEDS ORDERED: Insulin Glarg,Human.Rec.Analog 100 Unit/ML SUBCUT ONE (22:31)
[2022-01-01] MEDS ORDERED: Insulin Lispro 100 Units/ML 3 ML Vial SUBCUT ONE (22:32)
[2022-01-01] MEDS ORDERED: Nystatin Topical Powder 30 GM Bottle TOP PRN (22:38)
[2022-01-01] MEDS: Saccharomyces Boulardii (Probiotic) 250 MG Cap PO SCH (22:57)
[2022-01-01] MEDS: Enoxaparin 60 MG/0.6 ML Syringe SUBCUT SCH (22:58)
[2022-01-01] MEDS: Simvastatin 40 MG Tab PO SCH (22:58)
[2022-01-02] MEDS: Acetaminophen/oxyCODONE 325-5 MG Tab PO PRN ×3 (01:48→15:59)
[2022-01-02 06:08] LABS: ANION GAP 18.7 mEq/L (7-13)
[2022-01-02] MEDS: Pantoprazole 40 MG Tab.CR PO SCH ×2 (06:15→16:00)
[2022-01-02] MEDS: Piperacillin/Tazobactam 2.25 GM in Sodium Chloride 0.9% 50 ML IV SCH ×4 (08:35→23:24)
[2022-01-02] MEDS: Insulin Lispro 100 Units/ML 3 ML Vial SUBCUT SCH ×4 (08:39→17:20)
[2022-01-02] MEDS: Phenazopyridine 95 MG Tab PO SCH ×2 (08:41→21:04)
[2022-01-02] MEDS: Enoxaparin 60 MG/0.6 ML Syringe SUBCUT SCH ×2 (08:46→21:05)
[2022-01-02] MEDS: Saccharomyces Boulardii (Probiotic) 250 MG Cap PO SCH ×2 (09:21→21:03)
[2022-01-02] MEDS: Sodium Chloride 0.9% 1,000 ML IV SCH (09:21)
[2022-01-02] MEDS ORDERED: DESOXIMETASONE TOP PRN (11:32)
[2022-01-02] MEDS ORDERED: Non-Formulary Medication 1 Each (Semaglutide [Ozempic] 1 MG/0.75 ML Pen.Injctr) SQ SCH (11:45)
[2022-01-02] MEDS ORDERED: Glucagon,Human Recombinant 1 MG Vial IM PRN (12:03)
[2022-01-02] MEDS ORDERED: 50% Dextrose in Water 50 ML Syringe IVPUSH PRN (12:03)
[2022-01-02] MEDS: OLANZapine 5 MG Tab PO SCH ×2 (13:22→21:04)
[2022-01-02] MEDS: Carboxymethylcellulose Sodium 1% Ophth Gel 0.4 ML UD EYEBOTH SCH ×3 (13:22→21:04)
[2022-01-02] MEDS ORDERED: Warfarin 5 MG Tab PO ONE (14:00)
[2022-01-02] MEDS ORDERED: Piperacillin/Tazobactam 2.25 GM in Sodium Chloride 0.9% 50 ML IV SCH (19:45)
[2022-01-02] MEDS ORDERED: Oxybutynin 5 MG Tab.ER PO SCH (21:00)
[2022-01-02] MEDS: Mirtazapine 15 MG Tab PO SCH (21:04)
[2022-01-02] MEDS: Simvastatin 40 MG Tab PO SCH (21:04)
[2022-01-03] MEDS: Pantoprazole 40 MG Tab.CR PO SCH ×2 (05:30→16:17)
[2022-01-03] MEDS: Piperacillin/Tazobactam 2.25 GM in Sodium Chloride 0.9% 50 ML IV SCH ×3 (05:36→17:58)
[2022-01-03] MEDS ORDERED: Non-Formulary Medication 1 Each (Omeprazole [Omeprazole] 40 MG Capsule.Dr) PO SCH (06:00)
[2022-01-03 06:34] LABS: ANION GAP 18.9 mEq/L (7-13)
[2022-01-03] MEDS ORDERED: Tamsulosin 0.4 MG Cap.ER PO ONE ×2 (09:30→21:00)
[2022-01-03] MEDS: Insulin Lispro 100 Units/ML 3 ML Vial SUBCUT SCH ×3 (10:15→17:45)
[2022-01-03] MEDS: Enoxaparin 60 MG/0.6 ML Syringe SUBCUT SCH ×2 (10:17→21:37)
[2022-01-03] MEDS: Carboxymethylcellulose Sodium 1% Ophth Gel 0.4 ML UD EYEBOTH SCH ×4 (10:18→21:50)
[2022-01-03] MEDS: Ferrous Sulfate 325 MG Tab PO SCH (10:19)
[2022-01-03] MEDS: Saccharomyces Boulardii (Probiotic) 250 MG Cap PO SCH ×2 (10:19→21:36)
[2022-01-03] MEDS: Phenazopyridine 95 MG Tab PO SCH ×2 (10:21→21:35)
[2022-01-03] MEDS: Cholecalciferol (Vitamin D3) 25 MCG Tab PO SCH (10:21)
[2022-01-03] MEDS: OLANZapine 5 MG Tab PO SCH ×2 (10:22→21:36)
[2022-01-03] MEDS ORDERED: Warfarin 5 MG Tab PO ONE (14:00)
[2022-01-03] MEDS ORDERED: LORazepam 2 MG/ML SDV IVPUSH PRN (17:21)
[2022-01-03] MEDS ORDERED: LORazepam 0.5 MG Tab PO PRN (17:21)
[2022-01-03] MEDS ORDERED: Metoprolol Tartrate 5 MG/5 ML SDV IVPUSH PRN (18:48)
[2022-01-03] MEDS: Insulin Glarg,Human.Rec.Analog 100 Unit/ML SUBCUT SCH (21:35)
[2022-01-03] MEDS: Simvastatin 40 MG Tab PO SCH (21:36)
[2022-01-03] MEDS: Mirtazapine 15 MG Tab PO SCH (21:36)
[2022-01-04] MEDS: Piperacillin/Tazobactam 2.25 GM in Sodium Chloride 0.9% 50 ML IV SCH ×3 (00:10→12:28)
[2022-01-04] MEDS: Pantoprazole 40 MG Tab.CR PO SCH (05:22)
[2022-01-04 06:03] LABS: ANION GAP 17.9 mEq/L (7-13)
[2022-01-04] MEDS: Insulin Lispro 100 Units/ML 3 ML Vial SUBCUT SCH ×2 (08:04→12:17)
[2022-01-04 08:06] VITALS: PULSE 94
[2022-01-04] MEDS ORDERED: Tamsulosin 0.4 MG Cap.ER PO SCH (08:30)
[2022-01-04] MEDS: Cholecalciferol (Vitamin D3) 25 MCG Tab PO SCH (09:23)
[2022-01-04] MEDS: Ferrous Sulfate 325 MG Tab PO SCH (09:24)
[2022-01-04] MEDS: Saccharomyces Boulardii (Probiotic) 250 MG Cap PO SCH (09:24)
[2022-01-04] MEDS: Enoxaparin 60 MG/0.6 ML Syringe SUBCUT SCH (09:29)
[2022-01-04] MEDS: Carboxymethylcellulose Sodium 1% Ophth Gel 0.4 ML UD EYEBOTH SCH ×2 (09:29→12:24)
[2022-01-04] MEDS: Insulin Glarg,Human.Rec.Analog 100 Unit/ML SUBCUT SCH (09:30)
[2022-01-04] MEDS: OLANZapine 5 MG Tab PO SCH (09:53)
[2022-01-04 12:48] VITALS: BP 131/74
== END 2022-01-04 13:20 | disposition other institution (70) | DRG 699 ==
LOC: DL.ED 13:57 → DL.MS 17:17
PROVIDERS: ADMIT Internal Medicine; ATTEND Internal Medicine
DX: T83.511A Infection and inflammatory reaction due to indwelling urethral catheter, initial encounter (principal); N17.9 Acute kidney failure, unspecified; N30.00 Acute cystitis without hematuria; E78.00 Pure hypercholesterolemia, unspecified; E87.1 Hypo-osmolality and hyponatremia; I10 Essential (primary) hypertension; E78.5 Hyperlipidemia, unspecified; R33.9 Retention of urine, unspecified; Z93.6 Other artificial openings of urinary tract status; G47.33 Obstructive sleep apnea (adult) (pediatric); F32.A Depression, unspecified; D64.9 Anemia, unspecified; H26.9 Unspecified cataract; I51.7 Cardiomegaly; I34.0 Nonrheumatic mitral (valve) insufficiency; I50.9 Heart failure, unspecified; J45.909 Unspecified asthma, uncomplicated; K21.9 Gastro-esophageal reflux disease without esophagitis; N40.1 Benign prostatic hyperplasia with lower urinary tract symptoms; R33.8 Other retention of urine; N32.81 Overactive bladder; G40.909 Epilepsy, unspecified, not intractable, without status epilepticus; E11.22 Type 2 diabetes mellitus with diabetic chronic kidney disease; D63.1 Anemia in chronic kidney disease; K59.09 Other constipation; M10.9 Gout, unspecified; M81.0 Age-related osteoporosis without current pathological fracture; F31.9 Bipolar disorder, unspecified; F20.9 Schizophrenia, unspecified; E66.9 Obesity, unspecified; N18.30 Chronic kidney disease, stage 3 unspecified; R79.1 Abnormal coagulation profile; E11.65 Type 2 diabetes mellitus with hyperglycemia; B37.2 Candidiasis of skin and nail; Z87.442 Personal history of urinary calculi; Z87.440 Personal history of urinary (tract) infections; Z79.899 Other long term (current) drug therapy; I25.2 Old myocardial infarction; Z86.711 Personal history of pulmonary embolism; Z79.01 Long term (current) use of anticoagulants; Z86.718 Personal history of other venous thrombosis and embolism; Z79.84 Long term (current) use of oral hypoglycemic drugs; Z66 Do not resuscitate; E87.6 Hypokalemia; Z68.37 Body mass index [BMI] 37.0-37.9, adult; Z20.822 Contact with and (suspected) exposure to COVID-19
CPT/HCPCS: 36415; 36600; 71045; 74176; 80053; 81001; 82803; 82947; 83605; 83880; 85025; 85610; 86140; 87040 ×2; 87086; 93005; J0696; J1815; J3490; J7030; U0002; 51702; 80048; 83735; 97161-GP; 97165-GO; 99222; 99232; 99238; A9270-GY; J1170; J1650; J2543

== ENCOUNTER 2022-01-08 02:40 | Inpatient (IN) | payer MEDICARE, MEDICAID ==
[2022-01-08 03:19] LABS: CHLORIDE,CL 102 mmol/L (98-107); SODIUM,NA 140 mmol/L (136-145)
[2022-01-08] MEDS ORDERED: Sodium Chloride 0.9% 1,000 ML IV ONE (04:19)
[2022-01-08] MEDS ORDERED: Glucagon,Human Recombinant 1 MG Vial IM PRN (04:20)
[2022-01-08] MEDS ORDERED: Insulin Regular, Human 100 Units/ML 3 ML Vial IV ONE (04:20)
[2022-01-08] MEDS ORDERED: 50% Dextrose in Water 50 ML Syringe IVPUSH PRN ×2 (04:20→13:08)
[2022-01-08] MEDS ORDERED: cefTRIAXone 1 GM in Sodium Chloride 0.9% 50 ML IV ONE (04:39)
[2022-01-08] MEDS ORDERED: Ondansetron 4 MG/2 ML SDV IVPUSH PRN (08:16)
[2022-01-08] MEDS ORDERED: Sodium Chloride 0.9% 10 ML Syringe FLUSH PRN (08:16)
[2022-01-08] MEDS ORDERED: Tamsulosin 0.4 MG Cap.ER PO SCH (08:30)
[2022-01-08] MEDS ORDERED: Non-Formulary Medication 1 Each (Magnesium [Magnesium] 200 MG Tablet) PO SCH (09:00)
[2022-01-08] MEDS: Cholecalciferol (Vitamin D3) 25 MCG Tab PO SCH (11:08)
[2022-01-08] MEDS: Omeprazole 20 MG Cap.CR PO SCH (11:08)
[2022-01-08] MEDS: Fluconazole 100 MG Tab PO SCH (11:09)
[2022-01-08] MEDS: OLANZapine 5 MG Tab PO SCH ×2 (11:09→21:53)
[2022-01-08] MEDS: Ciprofloxacin 500 MG Tab PO SCH ×2 (11:09→21:53)
[2022-01-08] MEDS: Bumetanide 1 MG Tab PO SCH (11:10)
[2022-01-08] MEDS: Ferrous Sulfate 325 MG Tab PO SCH (11:11)
[2022-01-08] MEDS: Saccharomyces Boulardii (Probiotic) 250 MG Cap PO SCH ×2 (11:12→21:53)
[2022-01-08] MEDS: Carboxymethylcellulose Sodium 1% Ophth Gel 0.4 ML UD EYEBOTH SCH ×4 (11:12→21:54)
[2022-01-08] MEDS: Sodium Chloride 0.9% 10 ML Syringe FLUSH SCH ×2 (11:17→21:54)
[2022-01-08] MEDS: Potassium Chloride 10 MEQ Tab.ER PO SCH (12:21)
[2022-01-08] MEDS: [UNRECOGNIZED DRUG - REMARK] PO SCH (12:22)
[2022-01-08] MEDS ORDERED: Insulin Glarg,Human.Rec.Analog 100 Unit/ML SUBCUT ONE (17:30)
[2022-01-08] MEDS: Insulin Lispro 100 Units/ML 3 ML Vial SUBCUT SCH ×2 (17:43→21:53)
[2022-01-08] MEDS ORDERED: Non-Formulary Medication 1 Each (Sennosides [Senna] 8.6 MG Capsule) PO SCH (21:00)
[2022-01-08] MEDS: Simvastatin 40 MG Tab PO SCH (21:53)
[2022-01-08] MEDS: Allopurinol 100 MG Tab PO SCH (21:53)
[2022-01-08] MEDS: Mirtazapine 15 MG Tab PO SCH (21:53)
[2022-01-08] MEDS: Oxybutynin 5 MG Tab.ER PO SCH (21:53)
[2022-01-09] MEDS: Acetaminophen 325 MG Tab PO PRN (03:48)
[2022-01-09] MEDS: Omeprazole 20 MG Cap.CR PO SCH (05:09)
[2022-01-09 07:20] LABS: ANION GAP 14.3 mEq/L (7-13)
[2022-01-09] MEDS: OLANZapine 5 MG Tab PO SCH ×2 (09:03→20:29)
[2022-01-09] MEDS: Saccharomyces Boulardii (Probiotic) 250 MG Cap PO SCH ×2 (09:03→20:28)
[2022-01-09] MEDS: Bumetanide 1 MG Tab PO SCH (09:03)
[2022-01-09] MEDS: Potassium Chloride 10 MEQ Tab.ER PO SCH (09:04)
[2022-01-09] MEDS: Losartan 25 MG Tab PO SCH (09:04)
[2022-01-09] MEDS: Ferrous Sulfate 325 MG Tab PO SCH (09:04)
[2022-01-09] MEDS: Cholecalciferol (Vitamin D3) 25 MCG Tab PO SCH (09:05)
[2022-01-09] MEDS: Fluconazole 100 MG Tab PO SCH (09:05)
[2022-01-09] MEDS: Ciprofloxacin 500 MG Tab PO SCH ×2 (09:05→20:30)
[2022-01-09] MEDS: Insulin Lispro 100 Units/ML 3 ML Vial SUBCUT SCH ×4 (09:11→22:28)
[2022-01-09] MEDS: [UNRECOGNIZED DRUG - REMARK] PO SCH (09:11)
[2022-01-09] MEDS: Sodium Chloride 0.9% 10 ML Syringe FLUSH SCH ×2 (09:13→20:31)
[2022-01-09] MEDS: Carboxymethylcellulose Sodium 1% Ophth Gel 0.4 ML UD EYEBOTH SCH ×4 (09:13→20:31)
[2022-01-09] MEDS ORDERED: Phytonadione 5 MG Tab PO ONE (12:16)
[2022-01-09] MEDS ORDERED: Insulin Isophane NPH, Human 100 Units/ML 3 ML Vial SQ ONE (12:17)
[2022-01-09] MEDS: Allopurinol 100 MG Tab PO SCH (20:29)
[2022-01-09] MEDS: Simvastatin 40 MG Tab PO SCH (20:30)
[2022-01-09] MEDS: Mirtazapine 15 MG Tab PO SCH (20:30)
[2022-01-09] MEDS: Oxybutynin 5 MG Tab.ER PO SCH (20:31)
[2022-01-09] MEDS ORDERED: Insulin Glarg,Human.Rec.Analog 100 Unit/ML SUBCUT SCH ×2 (21:00)
[2022-01-09] MEDS: Insulin Glarg,Human.Rec.Analog 100 Unit/ML SUBCUT SCH (22:27)
[2022-01-10] MEDS: Acetaminophen 325 MG Tab PO PRN (01:13)
[2022-01-10] MEDS: Omeprazole 20 MG Cap.CR PO SCH (05:26)
[2022-01-10 06:43] LABS: ANION GAP 13.7 mEq/L (7-13)
[2022-01-10] MEDS: Saccharomyces Boulardii (Probiotic) 250 MG Cap PO SCH ×2 (08:19→22:16)
[2022-01-10] MEDS: Fluconazole 100 MG Tab PO SCH (08:20)
[2022-01-10] MEDS: Cholecalciferol (Vitamin D3) 25 MCG Tab PO SCH (08:20)
[2022-01-10] MEDS: Bumetanide 1 MG Tab PO SCH (08:20)
[2022-01-10] MEDS: Ferrous Sulfate 325 MG Tab PO SCH (08:20)
[2022-01-10] MEDS: Carboxymethylcellulose Sodium 1% Ophth Gel 0.4 ML UD EYEBOTH SCH ×4 (08:22→22:17)
[2022-01-10] MEDS: Ciprofloxacin 500 MG Tab PO SCH ×2 (08:22→22:17)
[2022-01-10] MEDS: Potassium Chloride 10 MEQ Tab.ER PO SCH (08:22)
[2022-01-10] MEDS: OLANZapine 5 MG Tab PO SCH ×2 (08:23→22:17)
[2022-01-10] MEDS: Sodium Chloride 0.9% 10 ML Syringe FLUSH SCH ×2 (08:24→22:00)
[2022-01-10] MEDS: Insulin Lispro 100 Units/ML 3 ML Vial SUBCUT SCH ×4 (08:29→22:12)
[2022-01-10] MEDS: [UNRECOGNIZED DRUG - REMARK] PO SCH (12:35)
[2022-01-10] MEDS: [UNRECOGNIZED DRUG - REMARK] PO SCH (13:51)
[2022-01-10] MEDS: Acetaminophen/HYDROcodone 325-10 MG Tab PO PRN (14:08)
[2022-01-10] MEDS: Phenazopyridine 95 MG Tab PO SCH ×2 (14:08→22:15)
[2022-01-10] MEDS: Heparin Sodium 5,000 Units/ML Vial SUBCUT SCH ×2 (16:52→22:14)
[2022-01-10] MEDS: Insulin Glarg,Human.Rec.Analog 100 Unit/ML SUBCUT SCH (22:13)
[2022-01-10] MEDS: Simvastatin 40 MG Tab PO SCH (22:15)
[2022-01-10] MEDS: Allopurinol 100 MG Tab PO SCH (22:16)
[2022-01-10] MEDS: Oxybutynin 5 MG Tab.ER PO SCH (22:16)
[2022-01-10] MEDS: Mirtazapine 15 MG Tab PO SCH (22:17)
[2022-01-11] MEDS: Heparin Sodium 5,000 Units/ML Vial SUBCUT SCH ×3 (05:57→21:23)
[2022-01-11] MEDS: Omeprazole 20 MG Cap.CR PO SCH (05:57)
[2022-01-11 07:14] LABS: ANION GAP 13.9 mEq/L (7-13)
[2022-01-11] MEDS: Cholecalciferol (Vitamin D3) 25 MCG Tab PO SCH (08:48)
[2022-01-11] MEDS: Saccharomyces Boulardii (Probiotic) 250 MG Cap PO SCH ×2 (08:48→21:21)
[2022-01-11] MEDS: Fluconazole 100 MG Tab PO SCH (08:49)
[2022-01-11] MEDS: Phenazopyridine 95 MG Tab PO SCH ×3 (08:49→21:21)
[2022-01-11] MEDS: Potassium Chloride 10 MEQ Tab.ER PO SCH (08:49)
[2022-01-11] MEDS: Ciprofloxacin 500 MG Tab PO SCH ×2 (08:50→21:20)
[2022-01-11] MEDS: Ferrous Sulfate 325 MG Tab PO SCH (08:50)
[2022-01-11] MEDS: Carboxymethylcellulose Sodium 1% Ophth Gel 0.4 ML UD EYEBOTH SCH ×4 (08:50→21:19)
[2022-01-11] MEDS: OLANZapine 5 MG Tab PO SCH ×2 (08:53→21:20)
[2022-01-11] MEDS: Losartan 25 MG Tab PO SCH (08:54)
[2022-01-11] MEDS: Bumetanide 1 MG Tab PO SCH (08:54)
[2022-01-11] MEDS: [UNRECOGNIZED DRUG - REMARK] PO SCH (08:57)
[2022-01-11] MEDS: Insulin Lispro 100 Units/ML 3 ML Vial SUBCUT SCH ×4 (09:00→21:25)
[2022-01-11] MEDS: Sodium Chloride 0.9% 10 ML Syringe FLUSH SCH (09:45)
[2022-01-11] MEDS: Acetaminophen/HYDROcodone 325-10 MG Tab PO PRN (12:02)
[2022-01-11] MEDS ORDERED: Warfarin 2 MG Tab PO ONE (14:00)
[2022-01-11] MEDS: Mirtazapine 15 MG Tab PO SCH (21:20)
[2022-01-11] MEDS: Allopurinol 100 MG Tab PO SCH (21:20)
[2022-01-11] MEDS: Oxybutynin 5 MG Tab.ER PO SCH (21:20)
[2022-01-11] MEDS: Simvastatin 40 MG Tab PO SCH (21:21)
[2022-01-11] MEDS: Insulin Glarg,Human.Rec.Analog 100 Unit/ML SUBCUT SCH (21:24)
[2022-01-12] MEDS: Melatonin 3 MG Tab PO PRN (00:15)
[2022-01-12] MEDS: Sodium Chloride 0.9% 10 ML Syringe FLUSH SCH ×3 (00:17→21:29)
[2022-01-12] MEDS: Heparin Sodium 5,000 Units/ML Vial SUBCUT SCH ×3 (06:00→21:24)
[2022-01-12] MEDS: Omeprazole 20 MG Cap.CR PO SCH (06:00)
[2022-01-12 06:24] LABS: ANION GAP 11.9 mEq/L (7-13)
[2022-01-12] MEDS: Insulin Lispro 100 Units/ML 3 ML Vial SUBCUT SCH ×4 (08:29→21:34)
[2022-01-12] MEDS: Ciprofloxacin 500 MG Tab PO SCH ×2 (08:35→21:23)
[2022-01-12] MEDS: Potassium Chloride 10 MEQ Tab.ER PO SCH (08:35)
[2022-01-12] MEDS: Cholecalciferol (Vitamin D3) 25 MCG Tab PO SCH (08:36)
[2022-01-12] MEDS: Saccharomyces Boulardii (Probiotic) 250 MG Cap PO SCH ×2 (08:36→21:23)
[2022-01-12] MEDS: Fluconazole 100 MG Tab PO SCH (08:37)
[2022-01-12] MEDS: Ferrous Sulfate 325 MG Tab PO SCH (08:38)
[2022-01-12] MEDS: OLANZapine 5 MG Tab PO SCH ×2 (08:38→21:30)
[2022-01-12] MEDS: Carboxymethylcellulose Sodium 1% Ophth Gel 0.4 ML UD EYEBOTH SCH ×4 (08:38→21:24)
[2022-01-12] MEDS: Phenazopyridine 95 MG Tab PO SCH (08:38)
[2022-01-12] MEDS: Bumetanide 1 MG Tab PO SCH (08:39)
[2022-01-12] MEDS: [UNRECOGNIZED DRUG - REMARK] PO SCH (08:41)
[2022-01-12] MEDS: Acetaminophen/HYDROcodone 325-10 MG Tab PO PRN (11:54)
[2022-01-12] MEDS ORDERED: Warfarin 2 MG Tab PO ONE (14:00)
[2022-01-12] MEDS: Simvastatin 40 MG Tab PO SCH (21:21)
[2022-01-12] MEDS: Allopurinol 100 MG Tab PO SCH (21:21)
[2022-01-12] MEDS: Mirtazapine 15 MG Tab PO SCH (21:23)
[2022-01-12] MEDS: Oxybutynin 5 MG Tab.ER PO SCH (21:23)
[2022-01-12] MEDS: Insulin Glarg,Human.Rec.Analog 100 Unit/ML SUBCUT SCH (21:32)
[2022-01-13] MEDS: Omeprazole 20 MG Cap.CR PO SCH (05:04)
[2022-01-13] MEDS: Heparin Sodium 5,000 Units/ML Vial SUBCUT SCH ×3 (05:05→21:28)
[2022-01-13 05:32] LABS: ANION GAP 12.9 mEq/L (7-13)
[2022-01-13] MEDS: Saccharomyces Boulardii (Probiotic) 250 MG Cap PO SCH ×2 (08:15→20:22)
[2022-01-13] MEDS: Fluconazole 100 MG Tab PO SCH (08:15)
[2022-01-13] MEDS: Potassium Chloride 10 MEQ Tab.ER PO SCH (08:16)
[2022-01-13] MEDS: Losartan 25 MG Tab PO SCH (08:16)
[2022-01-13] MEDS: Cholecalciferol (Vitamin D3) 25 MCG Tab PO SCH (08:17)
[2022-01-13] MEDS: OLANZapine 5 MG Tab PO SCH ×2 (08:18→20:25)
[2022-01-13] MEDS: Bumetanide 1 MG Tab PO SCH (08:19)
[2022-01-13] MEDS: Ferrous Sulfate 325 MG Tab PO SCH (08:20)
[2022-01-13] MEDS: [UNRECOGNIZED DRUG - REMARK] PO SCH (08:21)
[2022-01-13] MEDS: Ciprofloxacin 500 MG Tab PO SCH (08:21)
[2022-01-13] MEDS: Carboxymethylcellulose Sodium 1% Ophth Gel 0.4 ML UD EYEBOTH SCH ×3 (08:21→17:13)
[2022-01-13] MEDS: Insulin Lispro 100 Units/ML 3 ML Vial SUBCUT SCH ×4 (08:22→20:26)
[2022-01-13] MEDS: Sodium Chloride 0.9% 10 ML Syringe FLUSH SCH ×2 (08:26→20:29)
[2022-01-13] MEDS: Acetaminophen/HYDROcodone 325-10 MG Tab PO PRN (09:49)
[2022-01-13] MEDS ORDERED: Warfarin 2 MG Tab PO ONE (14:00)
[2022-01-13] MEDS: Allopurinol 100 MG Tab PO SCH (20:22)
[2022-01-13] MEDS: Acetaminophen 325 MG Tab PO PRN (20:24)
[2022-01-13] MEDS: Oxybutynin 5 MG Tab.ER PO SCH (20:24)
[2022-01-13] MEDS: Mirtazapine 15 MG Tab PO SCH (20:25)
[2022-01-13] MEDS: Melatonin 3 MG Tab PO PRN (20:25)
[2022-01-13] MEDS: Simvastatin 40 MG Tab PO SCH (20:25)
[2022-01-13] MEDS: Insulin Glarg,Human.Rec.Analog 100 Unit/ML SUBCUT SCH (20:25)
[2022-01-14] MEDS: Carboxymethylcellulose Sodium 1% Ophth Gel 0.4 ML UD EYEBOTH SCH ×5 (00:14→22:22)
[2022-01-14] MEDS: Heparin Sodium 5,000 Units/ML Vial SUBCUT SCH ×3 (05:48→22:18)
[2022-01-14] MEDS: Omeprazole 20 MG Cap.CR PO SCH (05:49)
[2022-01-14] MEDS: OLANZapine 5 MG Tab PO SCH ×2 (08:19→22:20)
[2022-01-14] MEDS: Insulin Lispro 100 Units/ML 3 ML Vial SUBCUT SCH ×4 (08:20→22:16)
[2022-01-14] MEDS: Cholecalciferol (Vitamin D3) 25 MCG Tab PO SCH (08:22)
[2022-01-14] MEDS: Saccharomyces Boulardii (Probiotic) 250 MG Cap PO SCH ×2 (08:22→22:20)
[2022-01-14] MEDS: Bumetanide 1 MG Tab PO SCH (08:23)
[2022-01-14] MEDS: Fluconazole 100 MG Tab PO SCH (08:23)
[2022-01-14] MEDS: Potassium Chloride 10 MEQ Tab.ER PO SCH (08:24)
[2022-01-14] MEDS: Ferrous Sulfate 325 MG Tab PO SCH (08:24)
[2022-01-14] MEDS: [UNRECOGNIZED DRUG - REMARK] PO SCH (08:26)
[2022-01-14] MEDS: Sodium Chloride 0.9% 10 ML Syringe FLUSH SCH ×2 (08:29→22:26)
[2022-01-14] MEDS: Acetaminophen 325 MG Tab PO PRN (08:33)
[2022-01-14] MEDS: Polyethylene Glycol 3350 Powder 17 GM Packet PO SCH (10:31)
[2022-01-14] MEDS ORDERED: Warfarin 2 MG Tab PO SCH (14:00)
[2022-01-14] MEDS: Insulin Glarg,Human.Rec.Analog 100 Unit/ML SUBCUT SCH (22:15)
[2022-01-14] MEDS: Oxybutynin 5 MG Tab.ER PO SCH (22:20)
[2022-01-14] MEDS: Mirtazapine 15 MG Tab PO SCH (22:20)
[2022-01-14] MEDS: Simvastatin 40 MG Tab PO SCH (22:20)
[2022-01-14] MEDS: Allopurinol 100 MG Tab PO SCH (22:21)
[2022-01-15] MEDS: Omeprazole 20 MG Cap.CR PO SCH (05:48)
[2022-01-15] MEDS: Heparin Sodium 5,000 Units/ML Vial SUBCUT SCH ×3 (05:50→21:48)
[2022-01-15 06:27] LABS: ANION GAP 13.6 mEq/L (7-13); CHLORIDE,CL 104 mmol/L (98-107); SODIUM,NA 142 mmol/L (136-145)
[2022-01-15] MEDS: OLANZapine 5 MG Tab PO SCH ×2 (08:09→21:50)
[2022-01-15] MEDS: Bumetanide 1 MG Tab PO SCH (08:09)
[2022-01-15] MEDS: Cholecalciferol (Vitamin D3) 25 MCG Tab PO SCH (08:10)
[2022-01-15] MEDS: Fluconazole 100 MG Tab PO SCH (08:13)
[2022-01-15] MEDS: Losartan 25 MG Tab PO SCH (08:14)
[2022-01-15] MEDS: Saccharomyces Boulardii (Probiotic) 250 MG Cap PO SCH ×2 (08:16→21:49)
[2022-01-15] MEDS: Acetaminophen/HYDROcodone 325-10 MG Tab PO PRN (08:17)
[2022-01-15] MEDS: Polyethylene Glycol 3350 Powder 17 GM Packet PO SCH (08:17)
[2022-01-15] MEDS: Ferrous Sulfate 325 MG Tab PO SCH (08:17)
[2022-01-15] MEDS: Carboxymethylcellulose Sodium 1% Ophth Gel 0.4 ML UD EYEBOTH SCH ×4 (08:20→21:51)
[2022-01-15] MEDS: Potassium Chloride 10 MEQ Tab.ER PO SCH (08:21)
[2022-01-15] MEDS: Insulin Lispro 100 Units/ML 3 ML Vial SUBCUT SCH ×4 (08:23→21:47)
[2022-01-15] MEDS: [UNRECOGNIZED DRUG - REMARK] PO SCH (09:17)
[2022-01-15] MEDS: Sodium Chloride 0.9% 10 ML Syringe FLUSH SCH ×2 (09:41→21:52)
[2022-01-15] MEDS ORDERED: Ondansetron 4 MG Tab.DIS PO PRN (11:53)
[2022-01-15] MEDS ORDERED: Warfarin 2 MG Tab PO ONE (14:00)
[2022-01-15] MEDS: Insulin Glarg,Human.Rec.Analog 100 Unit/ML SUBCUT SCH (21:45)
[2022-01-15] MEDS: Simvastatin 40 MG Tab PO SCH (21:50)
[2022-01-15] MEDS: Mirtazapine 15 MG Tab PO SCH (21:50)
[2022-01-15] MEDS: Oxybutynin 5 MG Tab.ER PO SCH (21:50)
[2022-01-15] MEDS: Allopurinol 100 MG Tab PO SCH (21:50)
[2022-01-16] MEDS: Omeprazole 20 MG Cap.CR PO SCH (05:36)
[2022-01-16] MEDS: Heparin Sodium 5,000 Units/ML Vial SUBCUT SCH ×3 (05:37→21:28)
[2022-01-16] MEDS: Insulin Lispro 100 Units/ML 3 ML Vial SUBCUT SCH ×4 (08:23→21:31)
[2022-01-16] MEDS: Polyethylene Glycol 3350 Powder 17 GM Packet PO SCH (08:27)
[2022-01-16] MEDS: Sodium Chloride 0.9% 10 ML Syringe FLUSH SCH (08:28)
[2022-01-16] MEDS: Saccharomyces Boulardii (Probiotic) 250 MG Cap PO SCH ×2 (08:36→21:27)
[2022-01-16] MEDS: Bumetanide 1 MG Tab PO SCH (08:37)
[2022-01-16] MEDS: Cholecalciferol (Vitamin D3) 25 MCG Tab PO SCH (08:37)
[2022-01-16] MEDS: Potassium Chloride 10 MEQ Tab.ER PO SCH (08:37)
[2022-01-16] MEDS: OLANZapine 5 MG Tab PO SCH ×2 (08:39→21:28)
[2022-01-16] MEDS: Ferrous Sulfate 325 MG Tab PO SCH (08:39)
[2022-01-16] MEDS: [UNRECOGNIZED DRUG - REMARK] PO SCH (08:41)
[2022-01-16] MEDS: Carboxymethylcellulose Sodium 1% Ophth Gel 0.4 ML UD EYEBOTH SCH ×4 (08:46→21:28)
[2022-01-16] MEDS ORDERED: Warfarin 2 MG Tab PO ONE (14:00)
[2022-01-16] MEDS ORDERED: Warfarin 5 MG Tab PO ONE (14:00)
[2022-01-16] MEDS: Mirtazapine 15 MG Tab PO SCH (21:26)
[2022-01-16] MEDS: Allopurinol 100 MG Tab PO SCH (21:26)
[2022-01-16] MEDS: Oxybutynin 5 MG Tab.ER PO SCH (21:27)
[2022-01-16] MEDS: Simvastatin 40 MG Tab PO SCH (21:27)
[2022-01-16] MEDS: Insulin Glarg,Human.Rec.Analog 100 Unit/ML SUBCUT SCH (21:31)
[2022-01-17] MEDS: Heparin Sodium 5,000 Units/ML Vial SUBCUT SCH (05:30)
[2022-01-17] MEDS: Omeprazole 20 MG Cap.CR PO SCH (05:30)
[2022-01-17] MEDS: OLANZapine 5 MG Tab PO SCH ×2 (09:09→21:16)
[2022-01-17] MEDS: Bumetanide 1 MG Tab PO SCH (09:11)
[2022-01-17] MEDS: Saccharomyces Boulardii (Probiotic) 250 MG Cap PO SCH ×2 (09:12→21:14)
[2022-01-17] MEDS: Potassium Chloride 10 MEQ Tab.ER PO SCH (09:13)
[2022-01-17] MEDS: Losartan 25 MG Tab PO SCH (09:13)
[2022-01-17] MEDS: Ferrous Sulfate 325 MG Tab PO SCH (09:13)
[2022-01-17] MEDS: Cholecalciferol (Vitamin D3) 25 MCG Tab PO SCH (09:13)
[2022-01-17] MEDS: [UNRECOGNIZED DRUG - REMARK] PO SCH ×2 (09:16→11:05)
[2022-01-17] MEDS: Insulin Lispro 100 Units/ML 3 ML Vial SUBCUT SCH ×4 (09:19→21:10)
[2022-01-17] MEDS: Carboxymethylcellulose Sodium 1% Ophth Gel 0.4 ML UD EYEBOTH SCH ×5 (09:30→21:13)
[2022-01-17] MEDS: Polyethylene Glycol 3350 Powder 17 GM Packet PO SCH (10:43)
[2022-01-17] MEDS ORDERED: Warfarin 5 MG Tab PO ONE (14:00)
[2022-01-17] MEDS: Insulin Glarg,Human.Rec.Analog 100 Unit/ML SUBCUT SCH (21:12)
[2022-01-17] MEDS: Oxybutynin 5 MG Tab.ER PO SCH (21:14)
[2022-01-17] MEDS: Allopurinol 100 MG Tab PO SCH (21:15)
[2022-01-17] MEDS: Mirtazapine 15 MG Tab PO SCH (21:16)
[2022-01-17] MEDS: Simvastatin 40 MG Tab PO SCH (21:16)
[2022-01-18] MEDS: Omeprazole 20 MG Cap.CR PO SCH (05:16)
[2022-01-18] MEDS: Insulin Lispro 100 Units/ML 3 ML Vial SUBCUT SCH ×4 (08:20→20:51)
[2022-01-18] MEDS: Carboxymethylcellulose Sodium 1% Ophth Gel 0.4 ML UD EYEBOTH SCH ×4 (08:22→20:58)
[2022-01-18] MEDS: Saccharomyces Boulardii (Probiotic) 250 MG Cap PO SCH ×2 (08:23→20:54)
[2022-01-18] MEDS: Bumetanide 1 MG Tab PO SCH (08:23)
[2022-01-18] MEDS: Ferrous Sulfate 325 MG Tab PO SCH (08:24)
[2022-01-18] MEDS: OLANZapine 5 MG Tab PO SCH ×2 (08:24→20:55)
[2022-01-18] MEDS: Losartan 25 MG Tab PO SCH (08:25)
[2022-01-18] MEDS: Cholecalciferol (Vitamin D3) 25 MCG Tab PO SCH (08:27)
[2022-01-18] MEDS: Potassium Chloride 10 MEQ Tab.ER PO SCH (08:27)
[2022-01-18] MEDS: [UNRECOGNIZED DRUG - REMARK] PO SCH (09:00)
[2022-01-18] MEDS: Polyethylene Glycol 3350 Powder 17 GM Packet PO SCH (10:22)
[2022-01-18] MEDS ORDERED: Warfarin 1 MG, Warfarin 2 MG PO ONE ×2 (14:00)
[2022-01-18] MEDS: Insulin Glarg,Human.Rec.Analog 100 Unit/ML SUBCUT SCH (20:53)
[2022-01-18] MEDS: Mirtazapine 15 MG Tab PO SCH (20:56)
[2022-01-18] MEDS: Oxybutynin 5 MG Tab.ER PO SCH (20:56)
[2022-01-18] MEDS: Simvastatin 40 MG Tab PO SCH (20:56)
[2022-01-18] MEDS: Allopurinol 100 MG Tab PO SCH (20:57)
[2022-01-19] MEDS: Omeprazole 20 MG Cap.CR PO SCH (05:28)
[2022-01-19] MEDS: Bumetanide 1 MG Tab PO SCH (08:07)
[2022-01-19] MEDS: Cholecalciferol (Vitamin D3) 25 MCG Tab PO SCH (08:09)
[2022-01-19] MEDS: Potassium Chloride 10 MEQ Tab.ER PO SCH (08:09)
[2022-01-19] MEDS: OLANZapine 5 MG Tab PO SCH ×2 (08:09→20:54)
[2022-01-19] MEDS: Losartan 25 MG Tab PO SCH (08:10)
[2022-01-19] MEDS: Ferrous Sulfate 325 MG Tab PO SCH (08:10)
[2022-01-19] MEDS: Insulin Lispro 100 Units/ML 3 ML Vial SUBCUT SCH ×4 (08:11→20:51)
[2022-01-19] MEDS: Saccharomyces Boulardii (Probiotic) 250 MG Cap PO SCH ×2 (08:11→20:51)
[2022-01-19] MEDS: Polyethylene Glycol 3350 Powder 17 GM Packet PO SCH (08:17)
[2022-01-19] MEDS: [UNRECOGNIZED DRUG - REMARK] PO SCH (08:19)
[2022-01-19] MEDS: Carboxymethylcellulose Sodium 1% Ophth Gel 0.4 ML UD EYEBOTH SCH ×4 (08:24→21:00)
[2022-01-19] MEDS ORDERED: Warfarin 1 MG, Warfarin 2 MG PO ONE ×2 (14:00)
[2022-01-19] MEDS: Insulin Glarg,Human.Rec.Analog 100 Unit/ML SUBCUT SCH (20:52)
[2022-01-19] MEDS: Oxybutynin 5 MG Tab.ER PO SCH (20:53)
[2022-01-19] MEDS: Simvastatin 40 MG Tab PO SCH (20:55)
[2022-01-19] MEDS: Allopurinol 100 MG Tab PO SCH (20:55)
[2022-01-19] MEDS: Mirtazapine 15 MG Tab PO SCH (20:56)
[2022-01-20] MEDS: Omeprazole 20 MG Cap.CR PO SCH (05:58)
[2022-01-20 06:23] LABS: ANION GAP 11.8 mEq/L (7-13); CHLORIDE,CL 103 mmol/L (98-107); SODIUM,NA 140 mmol/L (136-145)
[2022-01-20] MEDS: Insulin Lispro 100 Units/ML 3 ML Vial SUBCUT SCH (07:58)
[2022-01-20] MEDS: Cholecalciferol (Vitamin D3) 25 MCG Tab PO SCH (08:26)
[2022-01-20] MEDS: Ferrous Sulfate 325 MG Tab PO SCH (08:26)
[2022-01-20] MEDS: OLANZapine 5 MG Tab PO SCH (08:26)
[2022-01-20] MEDS: Bumetanide 1 MG Tab PO SCH (08:27)
[2022-01-20] MEDS: Potassium Chloride 10 MEQ Tab.ER PO SCH (08:28)
[2022-01-20] MEDS: Saccharomyces Boulardii (Probiotic) 250 MG Cap PO SCH (08:28)
[2022-01-20] MEDS: Carboxymethylcellulose Sodium 1% Ophth Gel 0.4 ML UD EYEBOTH SCH (08:28)
[2022-01-20] MEDS: Polyethylene Glycol 3350 Powder 17 GM Packet PO SCH (08:28)
[2022-01-20] MEDS: [UNRECOGNIZED DRUG - REMARK] PO SCH (08:29)
[2022-01-20 08:30] VITALS: BP 141/72; PULSE 80
== END 2022-01-20 09:00 | disposition home or self-care (01) | DRG 698 ==
LOC: DL.ED 02:40 → DL.MS 05:42 → UNDOADMIN 05:42 → DL.MS 16:06
PROVIDERS: ADMIT Internal Medicine; ATTEND Hospitalist
DX: T83.511A Infection and inflammatory reaction due to indwelling urethral catheter, initial encounter (principal); A41.9 Sepsis, unspecified organism; N17.9 Acute kidney failure, unspecified; N39.0 Urinary tract infection, site not specified; Z66 Do not resuscitate; Z20.822 Contact with and (suspected) exposure to COVID-19; I10 Essential (primary) hypertension; E11.65 Type 2 diabetes mellitus with hyperglycemia; E78.00 Pure hypercholesterolemia, unspecified; J45.909 Unspecified asthma, uncomplicated; K21.9 Gastro-esophageal reflux disease without esophagitis; D64.9 Anemia, unspecified; T83.010A Breakdown (mechanical) of cystostomy catheter, initial encounter; N18.30 Chronic kidney disease, stage 3 unspecified; E11.22 Type 2 diabetes mellitus with diabetic chronic kidney disease; R31.9 Hematuria, unspecified; N32.89 Other specified disorders of bladder; R32 Unspecified urinary incontinence; I12.9 Hypertensive chronic kidney disease with stage 1 through stage 4 chronic kidney disease, or unspecified chronic kidney disease; F39 Unspecified mood [affective] disorder; R33.9 Retention of urine, unspecified; G40.909 Epilepsy, unspecified, not intractable, without status epilepticus; F32.A Depression, unspecified; F91.8 Other conduct disorders; Z86.711 Personal history of pulmonary embolism; Z79.01 Long term (current) use of anticoagulants; Z79.84 Long term (current) use of oral hypoglycemic drugs; Z79.899 Other long term (current) drug therapy; Z86.718 Personal history of other venous thrombosis and embolism; I25.2 Old myocardial infarction; Z98.49 Cataract extraction status, unspecified eye; Z90.49 Acquired absence of other specified parts of digestive tract; Z28.82 Immunization not carried out because of caregiver refusal; Z93.6 Other artificial openings of urinary tract status; Z87.440 Personal history of urinary (tract) infections
CPT/HCPCS: 36415; 71045; 74018; 80053; 81001; 82947; 83605; 83735; 83880; 85027; 85610; 87040; 87086; 96365; 99284 ×2; A9270 ×16; J0696; J1815; J3490; J7030; 51700; 51702; 80048; 85025; 97116-GP; 97165-GO; 97530-GO; J1644; U0002

== ENCOUNTER 2022-12-24 10:16 | Emergency (ER) | payer MEDICARE, MEDICAID ==
[2022-12-24 11:12] LABS: ANION GAP 13.3 mEq/L (7-13); CHLORIDE,CL 103 mmol/L (98-107); SODIUM,NA 141 mmol/L (136-145)
[2022-12-24 11:25] LABS: ESTIMATED GFR 34 mL/min (>=60)
[2022-12-24] MEDS ORDERED: Aspirin 81 MG Tab.Chew PO ONE (11:29)
[2022-12-24] MEDS ORDERED: Nitroglycerin 0.4 MG Tab.SL SL ONE (11:39)
[2022-12-24] MEDS ORDERED: Morphine 2 MG/ML SYRINGE IVPUSH ONE (11:58)
[2022-12-24 13:45] VITALS: PULSE 64
[2022-12-24 14:34] VITALS: BP 145/77
== END 2022-12-24 14:55 ==
LOC: DL.ED 10:16
DX: I21.4 Non-ST elevation (NSTEMI) myocardial infarction (principal); E78.00 Pure hypercholesterolemia, unspecified; I10 Essential (primary) hypertension; I25.2 Old myocardial infarction; K21.9 Gastro-esophageal reflux disease without esophagitis; E11.9 Type 2 diabetes mellitus without complications; Z79.899 Other long term (current) drug therapy; Z79.4 Long term (current) use of insulin; Z79.01 Long term (current) use of anticoagulants
CPT/HCPCS: 36415; 80053; 83605; 84484; 85025; 85610; 93005; 93010; 96374; 99285; 99285-25; A9270-GY; J2270

== ENCOUNTER 2023-08-19 08:47 | Emergency (ER) | payer MEDICARE, MEDICAID ==
[2023-08-19 09:52] VITALS: BP 175/88; PULSE 110
[2023-08-19 09:53] LABS: APPEARANCE,URINE CLEAR (CLEAR); BILIRUBIN,URINE NEGATIVE (NEGATIVE); COLOR,URINE YELLOW (YELLOW); GLUCOSE,URINE NEGATIVE (NEGATIVE); KETONES,URINE NEGATIVE (NEGATIVE); LEUKOCYTE ESTERASE,URINE LARGE (NEGATIVE); NITRITE,URINE POSITIVE (NEGATIVE); OCCULT BLOOD,URINE MODERATE (NEGATIVE); PROTEIN,URINE 100 (NEGATIVE); UROBILINOGEN,URINE 0.2 mg/dL (0.2-1.0)
[2023-08-19 10:28] LABS: AMORPHOUS SEDIMENT,URINE FEW /HPF (NOT SEEN); BACTERIA,URINE FEW /HPF (0-FEW/HPF); EPITHELIAL CELLS,URINE FEW /HPF (NOT SEEN); MUCUS,URINE FEW /LPF (NOT SEEN); RBC,URINE 0-5 /HPF (0-5); WBC,URINE SEMI-PACKED /HPF (0-5/HPF)
== END 2023-08-19 10:11 | disposition home or self-care (01) ==
LOC: DL.ED 08:47
DX: T83.010A Breakdown (mechanical) of cystostomy catheter, initial encounter (principal); I10 Essential (primary) hypertension; E78.00 Pure hypercholesterolemia, unspecified; I25.2 Old myocardial infarction; K21.9 Gastro-esophageal reflux disease without esophagitis; E11.9 Type 2 diabetes mellitus without complications; Z79.01 Long term (current) use of anticoagulants; Z79.899 Other long term (current) drug therapy; Z90.49 Acquired absence of other specified parts of digestive tract
CPT/HCPCS: 81001; 87086; 87088; 87186; 99283; C1758

== ENCOUNTER 2024-06-27 18:09 | Observation (INO) | payer OTHER, MEDICAID ==
[2024-06-27 18:40] LABS: BASOPHILS PERCENT AUTO 0.3 % (0.0-1.0); EOSINOPHILS PERCENT AUTO 4.9 % (1.0-3.0); HEMATOCRIT 37.1 % (40.0-54.0); HEMOGLOBIN 12.2 g/dL (14.0-18.0); LYMPHOCYTES PERCENT AUTO 30.3 % (20.5-50.1); MEAN CORPUSCULAR HEMOGLOBIN 32.2 pg (27.0-34.0); MEAN CORPUSCULAR HGB CONC 32.9 g/dL (33.0-35.0); MEAN CORPUSCULAR VOLUME 97.9 fL (80-100); MONOCYTES PERCENT AUTO 9.9 % (2-8); NEUTROPHILS PERCENT AUTO 54.6 % (42.2-75.2); PLATELET COUNT,PLT 198 10^3/uL (150-450); RED BLOOD CELL COUNT 3.79 10^6/uL (4.6-6.2); WHITE BLOOD CELL COUNT,WBC 7.4 10^3/uL (5.0-10.0)
[2024-06-27 19:14] LABS: INR 2.7 (0.9-1.2); PROTHROMBIN TIME 25.9 SEC (9.0-12.0)
[2024-06-27 19:51] LABS: A/G RATIO 0.9; ALANINE AMINOTRANSFERASE,ALT 19 U/L (16-63); ALBUMIN 3.5 g/dL (3.4-5.0); ALKALINE PHOSPHATASE 96 U/L (46-116); ANION GAP 14.7 mEq/L (7-13); ASPARTATE AMNIOTRANSFERASE,AST 37 U/L (15-37); BILIRUBIN TOTAL 0.4 mg/dL (0.2-1.0); BLOOD UREA NITROGEN,BUN 26 mg/dL (7-18); CALCIUM 9.1 mg/dL (8.5-10.1); CARBON DIOXIDE,CO2 28 mmol/L (21-32); CHLORIDE,CL 103 mmol/L (98-107); CREATININE 2.16 mg/dL (0.70-1.30); GLUCOSE RANDOM 191 mg/dL (70-99); MAGNESIUM 1.7 mg/dL (1.8-2.4); POTASSIUM,K 4.7 mmol/L (3.5-5.1); PROTEIN TOTAL,TP 7.6 g/dL (6.4-8.2)
[2024-06-27 19:54] LABS: ESTIMATED GFR 32 mL/min (>=60); SODIUM,NA 141 mmol/L (136-145)
[2024-06-27 20:43] LABS: APPEARANCE,URINE SLIGHTLY CLOUDY (CLEAR); BILIRUBIN,URINE NEGATIVE (NEGATIVE); COLOR,URINE YELLOW (YELLOW); GLUCOSE,URINE NEGATIVE (NEGATIVE); KETONES,URINE NEGATIVE (NEGATIVE); LEUKOCYTE ESTERASE,URINE SMALL (NEGATIVE); NITRITE,URINE NEGATIVE (NEGATIVE); OCCULT BLOOD,URINE MODERATE (NEGATIVE); PROTEIN,URINE 30 (NEGATIVE); UROBILINOGEN,URINE 0.2 mg/dL (0.2-1.0)
[2024-06-27 20:55] LABS: BACTERIA,URINE MANY /HPF (0-FEW/HPF); EPITHELIAL CELLS,URINE NOT SEEN /HPF (NOT SEEN); WBC,URINE 50-75 /HPF (0-5/HPF)
[2024-06-27] MEDS ORDERED: Bisacodyl 5 MG Tab PO PRN (22:17)
[2024-06-27] MEDS ORDERED: Melatonin 3 MG Tab PO PRN (22:17)
[2024-06-27] MEDS ORDERED: Ondansetron 4 MG/2 ML SDV IVPUSH PRN (22:17)
[2024-06-27] MEDS ORDERED: Acetaminophen 325 MG Tab PO PRN (22:17)
[2024-06-27] MEDS ORDERED: Naloxone 2 MG/2 ML Syringe IVPUSH PRN (22:17)
[2024-06-27] MEDS ORDERED: HYDROmorphone 0.5 MG/0.5 ML Syringe IVPUSH PRN (22:17)
[2024-06-27] MEDS ORDERED: Magnesium Hydroxide 400 MG/5 ML Susp 30 ML Cup PO PRN (22:17)
[2024-06-27] MEDS ORDERED: Acetaminophen/oxyCODONE 325-5 MG Tab PO PRN (22:17)
[2024-06-27] MEDS ORDERED: Polyethylene Glycol 3350 Powder 17 GM Packet PO PRN (22:17)
[2024-06-27] MEDS ORDERED: Albuterol/Ipratropium 3.0-0.5 MG/3 ML Neb Soln NEB PRN (22:17)
[2024-06-27] MEDS ORDERED: 50% Dextrose in Water 50 ML Syringe IVPUSH PRN ×2 (22:22→22:26)
[2024-06-27] MEDS ORDERED: Glucagon,Human Recombinant 1 MG Vial IM PRN ×2 (22:22→22:26)
[2024-06-27] MEDS ORDERED: Metoprolol Tartrate 5 MG/5 ML SDV IVPUSH PRN (22:22)
[2024-06-27] MEDS ORDERED: hydrALAZINE 20 MG/ML SDV IVPUSH PRN (22:22)
[2024-06-27] MEDS ORDERED: Warfarin** 1 MG TABLET PO SCH ×3 (22:30)
[2024-06-28] MEDS: Warfarin 2.5 MG Tab PO SCH ×2 (02:04→16:02)
[2024-06-28 06:45] LABS: BASOPHILS PERCENT AUTO 0.2 % (0.0-1.0); HEMATOCRIT 35.3 % (40.0-54.0); HEMOGLOBIN 11.5 g/dL (14.0-18.0); LYMPHOCYTES PERCENT AUTO 32.3 % (20.5-50.1); MEAN CORPUSCULAR HGB CONC 32.6 g/dL (33.0-35.0); MEAN CORPUSCULAR VOLUME 98.3 fL (80-100); MONOCYTES PERCENT AUTO 12.5 % (2-8); PLATELET COUNT,PLT 168 10^3/uL (150-450); RED BLOOD CELL COUNT 3.59 10^6/uL (4.6-6.2); WHITE BLOOD CELL COUNT,WBC 6.7 10^3/uL (5.0-10.0)
[2024-06-28 07:15] LABS: INR 2.5 (0.9-1.2); PROTHROMBIN TIME 24.8 SEC (9.0-12.0)
[2024-06-28 07:21] VITALS: BP 129/75; PULSE 74
[2024-06-28 08:03] LABS: ALANINE AMINOTRANSFERASE,ALT 18 U/L (16-63); ALBUMIN 3.3 g/dL (3.4-5.0); ALKALINE PHOSPHATASE 90 U/L (46-116); ANION GAP 9.1 mEq/L (7-13); ASPARTATE AMNIOTRANSFERASE,AST 19 U/L (15-37); BILIRUBIN TOTAL 0.4 mg/dL (0.2-1.0); BLOOD UREA NITROGEN,BUN 23 mg/dL (7-18); BUN/CREATININE RATIO 11.7 (No establ ref range); CARBON DIOXIDE,CO2 29 mmol/L (21-32); CHLORIDE,CL 106 mmol/L (98-107); CHOLESTEROL HDL 35 mg/dL (40-59); CHOLESTEROL LDL CALCULATED 60 mg/dL (0-100); CHOLESTEROL TOTAL 124 mg/dL (0-199); CREATINE KINASE,CK 120 U/L (39-308); CREATININE 1.97 mg/dL (0.70-1.30); GLUCOSE RANDOM 156 mg/dL (70-99); MAGNESIUM 1.9 mg/dL (1.8-2.4); POTASSIUM,K 4.1 mmol/L (3.5-5.1); SODIUM,NA 140 mmol/L (136-145); TRIGLYCERIDES 145 mg/dL (0-149)
[2024-06-28 08:09] LABS: A/G RATIO 0.89; ESTIMATED GFR 36 mL/min (>=60)
[2024-06-28] MEDS: Insulin Lispro 100 Units/ML 3 ML Vial SUBCUT SCH (08:53)
[2024-06-28] MEDS ORDERED: Bumetanide 1 MG Tab PO SCH (09:00)
[2024-06-28] MEDS ORDERED: OLANZAPINE 2.5 MG PO SCH (09:00)
[2024-06-28] MEDS: Bumetanide 1 MG Tab PO SCH (09:07)
[2024-06-28] MEDS: OLANZapine 5 MG Tab PO SCH (09:07)
[2024-06-28] MEDS ORDERED: Glucagon,Human Recombinant 1 MG Vial IM PRN (09:10)
[2024-06-28] MEDS ORDERED: 50% Dextrose in Water 50 ML Syringe IVPUSH PRN (09:10)
[2024-06-28] MEDS: Aspirin 81 MG Tab.EC PO ONE (16:02)
[2024-06-28] MEDS ORDERED: Sennosides/Docusate Sodium 50-8.6 MG Tab PO SCH (21:00)
[2024-06-28] MEDS ORDERED: OLANZAPINE 10 MG PO SCH (21:00)
[2024-06-28] MEDS ORDERED: Allopurinol 100 MG Tab PO SCH ×2 (21:00)
[2024-06-28] MEDS ORDERED: Mirtazapine 15 MG Tab PO SCH ×2 (21:00)
[2024-06-28] MEDS ORDERED: Insulin Glarg,Human.Rec.Analog 100 Unit/ML 10 ML Vial SUBCUT SCH ×3 (21:00)
[2024-06-28] MEDS ORDERED: Simvastatin 40 MG Tab PO SCH (21:00)
[2024-06-28] MEDS ORDERED: BENZTROPINE 1 MG PO SCH (21:00)
[2024-06-28] MEDS ORDERED: OLANZapine 5 MG Tab PO SCH (21:00)
[2024-06-29] MEDS ORDERED: Multivitamin Tab PO SCH (09:00)
[2024-06-29] MEDS ORDERED: Non-Formulary Medication 1 Each (Mirabegron [Myrbetriq] 25 MG Tab.Er) PO SCH (09:00)
[2024-06-29] MEDS ORDERED: Folic Acid 1 MG Tab PO SCH (09:00)
[2024-06-29] MEDS ORDERED: Polyethylene Glycol 3350 Powder 17 GM Packet PO SCH (09:00)
[2024-06-29] MEDS ORDERED: Famotidine 20 MG Tab PO SCH (09:00)
[2024-06-29] MEDS ORDERED: DULoxetine 30 MG Cap PO SCH (09:00)
== END 2024-06-28 16:10 | disposition other institution (70) ==
LOC: DL.ED 18:09 → DL.MS 21:42 → DL.ED 22:06
PROVIDERS: ADMIT Internal Medicine; ATTEND Internal Medicine
DX: S00.83XA Contusion of other part of head, initial encounter (principal); R77.8 Other specified abnormalities of plasma proteins; I13.0 Hypertensive heart and chronic kidney disease with heart failure and stage 1 through stage 4 chronic kidney disease, or unspecified chronic kidney disease; I50.9 Heart failure, unspecified; E11.22 Type 2 diabetes mellitus with diabetic chronic kidney disease; N18.32 Chronic kidney disease, stage 3b; D63.1 Anemia in chronic kidney disease; N17.9 Acute kidney failure, unspecified; E11.65 Type 2 diabetes mellitus with hyperglycemia; E66.9 Obesity, unspecified; E78.5 Hyperlipidemia, unspecified; G47.33 Obstructive sleep apnea (adult) (pediatric); K21.9 Gastro-esophageal reflux disease without esophagitis; Z79.01 Long term (current) use of anticoagulants; Z79.82 Long term (current) use of aspirin; Z79.899 Other long term (current) drug therapy; Z79.4 Long term (current) use of insulin; Z79.84 Long term (current) use of oral hypoglycemic drugs; W19.XXXA Unspecified fall, initial encounter
CPT/HCPCS: 36415; 70450; 71045; 72125; 80053; 80061; 81001; 82550; 82947; 83735; 83880; 84484; 85025; 85610; 85730; 87086; 87088; 87186; 93005; 93010; 97161-GP; 97165-GO; 99284; 99285; A9270-GY; G0378